=== PATIENT | female | born 1950 | race American Indian/Alaskan Native ===

== ENCOUNTER → 2018-02-17 09:13 | Outpatient (CLI) | payer MEDICARE, MEDICAID, SELFPAY ==
[2018-02-17 09:55] LABS: Hemoglobin A1C% w Est Avg Glu 8.1 % (4.0-6.0)
[2018-02-17 10:42] LABS: Alanine Aminotransferase 17 IU/L (9-52); Albumin 4.4 g/dL (3.5-5.0); Albumin Globulin Ratio 1.3 (1.0-2.8); Alkaline Phosphatase 82 U/L (38-126); Aspartate Aminotransferase 20 IU/L (14-36); BUN Creatinine Ratio 18.8 (6-22); Bilirubin Total 0.5 mg/dL (0.2-1.3); Blood Urea Nitrogen 15 mg/dL (7-17); Calcium 10.3 mg/dL (8.4-10.2); Carbon Dioxide 31 mmol/L (22-32); Chloride 99 mmol/L (98-107); Estimated Glomerular Filt Rate > 60.0 mL/min (>60); Globulin 3.5 g/dL (1.7-4.1); Glucose 166 mg/dL (80-110); HEMOLYSIS < 15 (0-50); Potassium 4.3 mmol/L (3.4-5.1); Sodium 140 mmol/L (137-145); Total Protein 7.9 g/dL (6.3-8.2)
[2018-02-17 11:00] LABS: Free T3, Triiodothyronine Free 2.07 pg/mL (2.77-5.27); Free T4, Direct Thyroxine 0.82 ng/dL (0.78-2.19)
== END ==
PROVIDERS: PCP Family Medicine; Visit Provider Family Medicine
DX: I10 Essential (primary) hypertension (principal); E03.9 Hypothyroidism, unspecified; E78.5 Hyperlipidemia, unspecified; E11.9 Type 2 diabetes mellitus without complications
CPT/HCPCS: 36415; 80053; 83036; 84439; 84443; 84481

== ENCOUNTER 2018-03-31 10:43 | Emergency (ER) | payer MEDICARE, MEDICAID, SELFPAY ==
[2018-03-31 10:45] VITALS: BP 112/79; PULSE 85; RESP 14; TEMP 36.8; O2SAT 96
--- NOTE | 2018-03-31 11:36 | PC.NURSE ---
Large Hematoma noted lower back. Tender to touch. Pt states it is not getting worse but is not getting better. On plavix for h/o stroke.
--- NOTE | 2018-03-31 12:22 | ED.BACK ---
HPI - Back Pain/Injury <CONRAD Villalba - Last Filed: 03/31/18 22:05> General Chief Complaint: Back Pain/Injury Stated Complaint: FELL, LUMP ON BACK, NOT RECOVERING Time Seen by Provider: 03/31/18 12:32 Source: patient Mode of arrival: wheelchair Limitations: no limitations History of Present Illness HPI Narrative: 67-year-old female with history of lumbar fusion/chronic back pain that is a everyday smoker here for complaint of pain into her lumbar area/tailbone area. She reports she had a ground level fall approximately 4 days ago when she landed on her lower back/buttocks area. She reports she has pain into her right lumbar area radiates into her tailbone area. She states that she is able to ambulate although it does cause her pain. She denies hitting her head. She denies any other injuries. Increased pain with palpation and movement of the lower back. No other concerns or complaints Related Data Home Medications Medication Instructions Recorded Confirmed buspirone 5 mg tablet 10 mg PO BID #0 tab 12/11/17 03/18/18 clopidogrel 75 mg tablet 75 mg PO DAILY 12/11/17 03/18/18 gabapentin 600 mg tablet 600 mg PO TID 12/11/17 03/18/18 levothyroxine 200 mcg tablet 200 mcg PO DAILY 12/11/17 03/18/18 ondansetron HCl 4 mg tablet 4 mg PO Q6H PRN 12/11/17 03/18/18 simvastatin 40 mg tablet 40 mg PO QAM 12/11/17 03/18/18 Zyprexa See Label Instructions PO BEDTIME 03/18/18 03/18/18 Previous Rx's Medication Instructions Recorded insulin detemir (U-100) 100 32 unit SUBCUT BEDTIME #15 ml 12/11/17 unit/mL (3 mL) subcutaneous pen levothyroxine 25 mcg capsule See Label Instructions PO .COMPLEX 12/11/17 #90 cap nutritional therapy glucose See Label Instructions .ROUTE 12/18/17 intolerance,lactose-free,soy oral .COMPLEX #5688 ml liquid metformin 1,000 mg tablet 1,000 mg PO BID #60 tab 02/03/18 sertraline 100 mg tablet 100 mg PO DAILY #90 tab 03/18/18 Accucheck test strips #100 each 03/26/18 Freestyle Glucose Meter #1 ea NS 03/28/18 Allergies Allergy/AdvReac Type Severity Reaction Status Date / Time Sulfa (Sulfonamide Allergy Severe RASH, Verified 03/18/18 08:53 Antibiotics) SWELLING, [SULFA (SULFONAMIDE ITCHING ANTIBIOTICS)] Penicillins [PENICILLINS] Allergy Intermediate RASH, Verified 03/18/18 08:53 SWELLING, ITCHING tramadol [TRAMADOL] Allergy Intermediate RASH Verified 03/18/18 08:53 hydromorphone [From DILAUDID] AdvReac Severe RASH, Verified 03/18/18 08:53 SWELLING, ITCHING ketorolac [From TORADOL] AdvReac Intermediate RASH Verified 03/18/18 08:53 Review of Systems <CONRAD Villalba - Last Filed: 03/31/18 22:05> Constitutional Denies chills, Denies fatigue, Denies fever(s), Denies lethargy and Denies weakness Eyes Denies change in vision, Denies eye discharge, Denies irritation and Denies loss of vision ENT Ears, Nose, Mouth, and Throat: Denies change in voice, Denies neck pain and Denies sore throat Cardiovascular Denies dyspnea and Denies dyspnea on exertion Respiratory Denies cough, Denies dyspnea, Denies dyspnea on exertion and Denies wheezing Gastrointestinal Gastrointestinal: Denies abdominal pain, Denies change in bowel habits, Denies diarrhea, Denies nausea and Denies vomiting Musculoskeletal Denies neck pain Comments: Lower back pain Integumentary/Breasts Denies pruritus, Denies erythema, Denies rash and Denies wounds Neurologic Denies loss of vision and Denies weakness Endocrine Denies fatigue and Denies flushing Allergic/Immunologic Denies wheezing Exam <CONRAD Villalba - Last Filed: 03/31/18 22:05> Initial Vital Signs Initial Vital Signs: Vital Signs Temperature 98.3 F 03/31/18 10:45 Pulse Rate 85 03/31/18 10:45 Respiratory Rate 14 03/31/18 10:45 Blood Pressure 112/79 03/31/18 10:45 Pulse Oximetry 96 03/31/18 10:45 Const General: cooperative and well developed Nutritional Appearance: well nourished Orientation: alert, awake, oriented x3 and not confused [facility] Head: normal to inspection, normocephalic and atraumatic Mouth: oral mucosae normal and moist mucous membranes Eyes Conjunctivae: conjunctivae normal Sclera: sclerae normal Pupils: PERRL EOM: EOM intact bilaterally Neck Neck: normal visual inspection, trachea midline, No lymphadenopathy, No midline deformity and No JVD Lymphatic: No lymphedema Resp Effort & Inspection: normal respiratory effort, able to speak in complete sentences, no respiratory distress and no use of accessory muscles Auscultation: clear to auscultation bilaterally, no rales, no rhonchi and no wheezes Cardio Rate: regular rate Rhythm: regular rhythm Heart Sounds: no click, no gallops, no murmurs and no rubs Pulses: normal peripheral pulses GI Inspection: non-distended Palpation: soft, no hepatosplenomegaly, No guarding, No pulsatile mass and No tender Auscultation: normal bowel sounds Back/Spine/Pelvis Thoracic/Lumbar Spine: paraspinal tenderness and lumbar spinal tenderness Sacrum: tenderness Coccyx: tenderness Other: Tenderness on palpation to the to midline and also paraspinal of lumbar spine with tenderness radiating into the sacral area. Superficial abrasion to the right lateral lumbar region with small hematoma felt under the skin no bruising seen. Distal sensation is intact. Distal range of motion is intact. Distal pulses are intact Skin General: no rashes or lesions noted, No jaundice and No petechiae Neuro General: alert, oriented x3, gait normal and no focal motor deficits Speech: speech normal Extrem Right lower extremity: normal to inspection, full ROM and normal capillary refill Left lower extremity: normal to inspection, full ROM and normal capillary refill <Swetha Resendiz DO - Last Filed: 04/01/18 09:48> Initial Vital Signs Initial Vital Signs: Vital Signs Temperature 98.3 F 03/31/18 10:45 Pulse Rate 85 03/31/18 10:45 Respiratory Rate 14 03/31/18 10:45 Blood Pressure 112/79 03/31/18 10:45 Pulse Oximetry 96 03/31/18 10:45 Course <CONRAD Villalba - Last Filed: 03/31/18 22:05> Orders Ordered: ED Orders 03/31/18 12:30 XR lumbar spine 2-3V Stat XR sacrum coccyx min 2V Stat Vital Signs - 8 hr 03/31/18 10:45 Temperature 98.3 F Pulse Rate 85 Respiratory Rate 14 Blood Pressure 112/79 Pulse Oximetry 96 <Swetha Resendiz DO - Last Filed: 04/01/18 09:48> Orders Ordered: ED Orders 03/31/18 12:30 XR lumbar spine 2-3V Stat XR sacrum coccyx min 2V Stat Vital Signs - 8 hr 03/31/18 10:45 Temperature 98.3 F Pulse Rate 85 Respiratory Rate 14 Blood Pressure 112/79 Pulse Oximetry 96 MDM - Back Pain/Injury <CONRAD Villalba - Last Filed: 03/31/18 22:05> Imaging Data Lumbar spine: Radiologist's impression: [address] [address] XRay Report Signed Patient: Vanda Lay MR#: [id number] : 1950 Acct:[id number] Age/Sex: 67 / F Date of Service: 03/31/18 Loc: ED Accession Number: [id number] Procedure: XR lumbar spine 2-3V Ordering Provider: Guido Negrete PROCEDURE: XR LUMBAR SPINE 2-3V INDICATIONS: Pain lumbar spine status post ground level fall TECHNIQUE: 3 views of the lumbar spine were acquired. COMPARISON: [facility], , L-SPINE 2-3 VIEWS, 01/26/2014, 15:32. FINDINGS: Bones: 5 [id number] vertebrae are present. There is normal bony alignment, partially maintained by presence of unilateral left-sided L2-L5 transverse pedicle screws and a single unilateral left-sided vertical fixation nick with interbody disc prosthesis present at L2 to 3, L3-4, and L4-L5. No vertebral body compression fractures. No suspicious bony lesions. Soft tissues: Overlying bowel gas pattern is normal. No suspicious soft tissue calcifications. IMPRESSION: Prior spine fusion as discussed, no evidence of device loosening or disruption aerated no trauma found, and no subluxation seen. Dictated by: Irving Ceballos M.D. on 03/31/2018 at 13:15 Approved by: Irving Ceballos M.D. on 03/31/2018 at 13:17 Sacrum coccyx : Radiologist's impression: [address] [address] XRay Report Signed Patient: Vanda Lay MR#: [id number] : 1950 Acct:[id number] Age/Sex: 67 / F Date of Service: 03/31/18 Loc: ED Accession Number: [id number] Procedure: XR sacrum coccyx min 2V Ordering Provider: Guido Negrete PROCEDURE: XR SACRUM COCCYX MIN 2V INDICATIONS: Pain to lower back and tailbone area status post ground leve TECHNIQUE: 3 views of the sacrum and coccyx acquired. COMPARISON: [facility], CR, XR LUMBAR SPINE 2-3V, 03/31/2018, 12:10. FINDINGS: Bones: No fractures or dislocations. No suspicious bony lesions. Prior spine fusion surgery only partially visualized crossing from L3-L5. Soft tissues: Visualized bowel gas pattern is normal. No suspicious soft tissue densities. IMPRESSION: No sacral fracture found. Prior unilateral left-sided spine fusion procedure from L2-L5. No evidence of device disruption or loosening. Dictated by: Irving Ceballos M.D. on 03/31/2018 at 13:14 Approved by: Irving Ceballos M.D. on 03/31/2018 at 13:15 [facility] Narrative Medical decision making narrative: X-ray the lumbar spine and sacrum coccyx were obtained and was negative for any acute findings. Hardware appears to be intact. Signs and symptoms presents as contusion/hematoma to the lumbar region. [id number]-[id number] Tylenol as needed for any discomfort. Follow up with primary care provider. Return emergency room for any worsening symptoms. Discharge Plan Departure Patient Disposition: Home Clinical Impression: Lower back pain Discharge Date/Time: 03/31/18 13:50 Interventions: ED Discharge Assessment Last Done: 03/31/18 13:50 Instructions: DI for Low Back Pain Activity Restrictions/Additional Instructions: X-rays of the lumbar spine and also sacrum coccyx were negative for any acute findings. Hardware is intact. Signs and symptoms presents as contusion/hematoma to the area. Use [id number] Tylenol as needed for any discomfort. Follow up with her primary care provider. Return emergency room for any worsening symptoms. Prescriptions: No Action insulin detemir U-100 [Levemir FlexTouch U-100 Insuln] 100 unit/mL (3 mL) insulin pen 32 unit SUBCUT BEDTIME Qty: 15 RF: 2 Zyprexa See Patient Comments PO BEDTIME RF: 0 gabapentin 600 mg tablet 600 mg PO TID RF: 0 ondansetron HCl 4 mg tablet 4 mg PO Q6H PRNRF: 0 clopidogrel 75 mg tablet 75 mg PO DAILY RF: 0 simvastatin 40 mg tablet 40 mg PO QAM RF: 0 levothyroxine 200 mcg tablet 200 mcg PO DAILY RF: 0 buspirone 5 mg tablet 10 mg PO BID Qty: 0 RF: 0 levothyroxine 25 mcg capsule See Label Instructions PO .COMPLEX Qty: 90 RF: 0 nut.tx.gluc.intol,lac-free,soy [Glucerna Shake] liquid See Label Instructions .ROUTE .COMPLEX Qty: 5688 RF: 6 metformin 1,000 mg tablet 1,000 mg PO BID Qty: 60 RF: 3 sertraline 100 mg tablet 100 mg PO DAILY Qty: 90 RF: 1 Accucheck test strips Qty: 100 RF: 3 Freestyle Glucose Meter Qty: 1 RF: 0 Referrals: Savannah Souza DO [Primary Care Provider] - <Swetha Resendiz DO - Last Filed: 04/01/18 09:48> Cosign ED Attending Coskaiaature Attestation: I was immediately available in the department for consultation. Documentation has been reviewed. I agree with assessment and plan.
--- NOTE | 2018-03-31 12:30 | DI.RAD.S_ITS ---
PROCEDURE: XR SACRUM COCCYX MIN 2V INDICATIONS: Pain to lower back and tailbone area status post ground leve TECHNIQUE: 3 views of the sacrum and coccyx acquired. COMPARISON: [facility], , XR LUMBAR SPINE 2-3V, 03/31/2018, 12:10. FINDINGS: Bones: No fractures or dislocations. No suspicious bony lesions. Prior spine fusion surgery only partially visualized crossing from L3-L5. Soft tissues: Visualized bowel gas pattern is normal. No suspicious soft tissue densities. IMPRESSION: No sacral fracture found. Prior unilateral left-sided spine fusion procedure from L2-L5. No evidence of device disruption or loosening. Dictated by: Irving Ceballos M.D. on 03/31/2018 at 13:14 Approved by: Irving Ceballos M.D. on 03/31/2018 at 13:15
--- NOTE | 2018-03-31 12:30 | DI.RAD.S_ITS ---
PROCEDURE: XR LUMBAR SPINE 2-3V INDICATIONS: Pain lumbar spine status post ground level fall TECHNIQUE: 3 views of the lumbar spine were acquired. COMPARISON: [facility], , L-SPINE 2-3 VIEWS, 01/26/2014, 15:32. FINDINGS: Bones: 5 [id number] vertebrae are present. There is normal bony alignment, partially maintained by presence of unilateral left-sided L2-L5 transverse pedicle screws and a single unilateral left-sided vertical fixation nick with interbody disc prosthesis present at L2 to 3, L3-4, and L4-L5. No vertebral body compression fractures. No suspicious bony lesions. Soft tissues: Overlying bowel gas pattern is normal. No suspicious soft tissue calcifications. IMPRESSION: Prior spine fusion as discussed, no evidence of device loosening or disruption aerated no trauma found, and no subluxation seen. Dictated by: Irving Ceballos M.D. on 03/31/2018 at 13:15 Approved by: Irving Ceballos M.D. on 03/31/2018 at 13:17
--- NOTE | 2018-03-31 13:37 | ED_ITS ---
HPI - Back Pain/Injury <CONRAD Villalba - Last Filed: 03/31/18 22:05> General Chief Complaint: Back Pain/Injury Stated Complaint: FELL, LUMP ON BACK, NOT RECOVERING Time Seen by Provider: 03/31/18 12:32 Source: patient Mode of arrival: wheelchair Limitations: no limitations History of Present Illness HPI Narrative: 67-year-old female with history of lumbar fusion/chronic back pain that is a everyday smoker here for complaint of pain into her lumbar area/ tailbone area. She reports she had a ground level fall approximately 4 days ago when she landed on her lower back/buttocks area. She reports she has pain into her right lumbar area radiates into her tailbone area. She states that she is able to ambulate although it does cause her pain. She denies hitting her head. She denies any other injuries. Increased pain with palpation and movement of the lower back. No other concerns or complaints Related Data Home Medications Medication Instructions Recorded Confirmed buspirone 5 mg tablet 10 mg PO BID #0 tab 12/11/17 03/18/18 clopidogrel 75 mg tablet 75 mg PO DAILY 12/11/17 03/18/18 gabapentin 600 mg tablet 600 mg PO TID 12/11/17 03/18/18 levothyroxine 200 mcg tablet 200 mcg PO DAILY 12/11/17 03/18/18 ondansetron HCl 4 mg tablet 4 mg PO Q6H PRN 12/11/17 03/18/18 simvastatin 40 mg tablet 40 mg PO QAM 12/11/17 03/18/18 Zyprexa See Label Instructions PO BEDTIME 03/18/18 03/18/18 Previous Rx's Medication Instructions Recorded insulin detemir (U-100) 100 32 unit SUBCUT BEDTIME #15 ml 12/11/17 unit/mL (3 mL) subcutaneous pen levothyroxine 25 mcg capsule See Label Instructions PO .COMPLEX 12/11/17 #90 cap nutritional therapy glucose See Label Instructions .ROUTE 12/18/17 intolerance,lactose-free,soy oral .COMPLEX #5688 ml liquid metformin 1,000 mg tablet 1,000 mg PO BID #60 tab 02/03/18 sertraline 100 mg tablet 100 mg PO DAILY #90 tab 03/18/18 Accucheck test strips #100 each 03/26/18 Freestyle Glucose Meter #1 ea NS 03/28/18 Allergies Allergy/AdvReac Type Severity Reaction Status Date / Time Sulfa (Sulfonamide Allergy Severe RASH, Verified 03/18/18 08:53 Antibiotics) SWELLING, [SULFA (SULFONAMIDE ITCHING ANTIBIOTICS)] Penicillins [PENICILLINS] Allergy Intermediate RASH, Verified 03/18/18 08:53 SWELLING, ITCHING tramadol [TRAMADOL] Allergy Intermediate RASH Verified 03/18/18 08:53 hydromorphone [From DILAUDID] AdvReac Severe RASH, Verified 03/18/18 08:53 SWELLING, ITCHING ketorolac [From TORADOL] AdvReac Intermediate RASH Verified 03/18/18 08:53 Review of Systems <CONRAD Villalba - Last Filed: 03/31/18 22:05> Constitutional Denies chills, Denies fatigue, Denies fever(s), Denies lethargy and Denies weakness Eyes Denies change in vision, Denies eye discharge, Denies irritation and Denies loss of vision ENT Ears, Nose, Mouth, and Throat: Denies change in voice, Denies neck pain and Denies sore throat Cardiovascular Denies dyspnea and Denies dyspnea on exertion Respiratory Denies cough, Denies dyspnea, Denies dyspnea on exertion and Denies wheezing Gastrointestinal Gastrointestinal: Denies abdominal pain, Denies change in bowel habits, Denies diarrhea, Denies nausea and Denies vomiting Musculoskeletal Denies neck pain Comments: Lower back pain Integumentary/Breasts Denies pruritus, Denies erythema, Denies rash and Denies wounds Neurologic Denies loss of vision and Denies weakness Endocrine Denies fatigue and Denies flushing Allergic/Immunologic Denies wheezing Exam <CONRAD Villalba - Last Filed: 03/31/18 22:05> Initial Vital Signs Initial Vital Signs: Vital Signs Temperature 98.3 F 03/31/18 10:45 Pulse Rate 85 03/31/18 10:45 Respiratory Rate 14 03/31/18 10:45 Blood Pressure 112/79 03/31/18 10:45 Pulse Oximetry 96 03/31/18 10:45 Const General: cooperative and well developed Nutritional Appearance: well nourished Orientation: alert, awake, oriented x3 and not confused [facility] Head: normal to inspection, normocephalic and atraumatic Mouth: oral mucosae normal and moist mucous membranes Eyes Conjunctivae: conjunctivae normal Sclera: sclerae normal Pupils: PERRL EOM: EOM intact bilaterally Neck Neck: normal visual inspection, trachea midline, No lymphadenopathy, No midline deformity and No JVD Lymphatic: No lymphedema Resp Effort & Inspection: normal respiratory effort, able to speak in complete sentences, no respiratory distress and no use of accessory muscles Auscultation: clear to auscultation bilaterally, no rales, no rhonchi and no wheezes Cardio Rate: regular rate Rhythm: regular rhythm Heart Sounds: no click, no gallops, no murmurs and no rubs Pulses: normal peripheral pulses GI Inspection: non-distended Palpation: soft, no hepatosplenomegaly, No guarding, No pulsatile mass and No tender Auscultation: normal bowel sounds Back/Spine/Pelvis Thoracic/Lumbar Spine: paraspinal tenderness and lumbar spinal tenderness Sacrum: tenderness Coccyx: tenderness Other: Tenderness on palpation to the to midline and also paraspinal of lumbar spine with tenderness radiating into the sacral area. Superficial abrasion to the right lateral lumbar region with small hematoma felt under the skin no bruising seen. Distal sensation is intact. Distal range of motion is intact. Distal pulses are intact Skin General: no rashes or lesions noted, No jaundice and No petechiae Neuro General: alert, oriented x3, gait normal and no focal motor deficits Speech: speech normal Extrem Right lower extremity: normal to inspection, full ROM and normal capillary refill Left lower extremity: normal to inspection, full ROM and normal capillary refill <Swetha Resendiz DO - Last Filed: 04/01/18 09:48> Initial Vital Signs Initial Vital Signs: Vital Signs Temperature 98.3 F 03/31/18 10:45 Pulse Rate 85 03/31/18 10:45 Respiratory Rate 14 03/31/18 10:45 Blood Pressure 112/79 03/31/18 10:45 Pulse Oximetry 96 03/31/18 10:45 Course <CONRAD Villalba - Last Filed: 03/31/18 22:05> Orders Ordered: ED Orders 03/31/18 12:30 XR lumbar spine 2-3V Stat XR sacrum coccyx min 2V Stat Vital Signs - 8 hr 03/31/18 10:45 Temperature 98.3 F Pulse Rate 85 Respiratory Rate 14 Blood Pressure 112/79 Pulse Oximetry 96 <Swetha Resendiz DO - Last Filed: 04/01/18 09:48> Orders Ordered: ED Orders 03/31/18 12:30 XR lumbar spine 2-3V Stat XR sacrum coccyx min 2V Stat Vital Signs - 8 hr 03/31/18 10:45 Temperature 98.3 F Pulse Rate 85 Respiratory Rate 14 Blood Pressure 112/79 Pulse Oximetry 96 MDM - Back Pain/Injury <CONRAD Vilallba - Last Filed: 03/31/18 22:05> Imaging Data Lumbar spine: Radiologist's impression: [address] [address] XRay Report Signed Patient: Vanda Lay MR#: [id number] : 1950 Acct:[id number] Age/Sex: 67 / F Date of Service: 03/31/18 Loc: ED Accession Number: [id number] Procedure: XR lumbar spine 2-3V Ordering Provider: Guido Negrete PROCEDURE: XR LUMBAR SPINE 2-3V INDICATIONS: Pain lumbar spine status post ground level fall TECHNIQUE: 3 views of the lumbar spine were acquired. COMPARISON: [facility], , L-SPINE 2-3 VIEWS, 01/26/2014, 15:32. FINDINGS: Bones: 5 [id number] vertebrae are present. There is normal bony alignment , partially maintained by presence of unilateral left-sided L2-L5 transverse pedicle screws and a single unilateral left-sided vertical fixation nick with interbody disc prosthesis present at L2 to 3, L3-4, and L4-L5. No vertebral body compression fractures. No suspicious bony lesions. Soft tissues: Overlying bowel gas pattern is normal. No suspicious soft tissue calcifications. IMPRESSION: Prior spine fusion as discussed, no evidence of device loosening or disruption aerated no trauma found, and no subluxation seen. Dictated by: Irving Ceballos M.D. on 03/31/2018 at 13:15 Approved by: Irving Ceballos M.D. on 03/31/2018 at 13:17 Sacrum coccyx : Radiologist's impression: [address] [address] XRay Report Signed Patient: Vanda Lay MR#: [id number] : 1950 Acct:[id number] Age/Sex: 67 / F Date of Service: 03/31/18 Loc: ED Accession Number: [id number] Procedure: XR sacrum coccyx min 2V Ordering Provider: Guido Negrete PROCEDURE: XR SACRUM COCCYX MIN 2V INDICATIONS: Pain to lower back and tailbone area status post ground leve TECHNIQUE: 3 views of the sacrum and coccyx acquired. COMPARISON: [facility], CR, XR LUMBAR SPINE 2-3V, 03/31/2018, 12:10. FINDINGS: Bones: No fractures or dislocations. No suspicious bony lesions. Prior spine fusion surgery only partially visualized crossing from L3-L5. Soft tissues: Visualized bowel gas pattern is normal. No suspicious soft tissue densities. IMPRESSION: No sacral fracture found. Prior unilateral left-sided spine fusion procedure from L2-L5. No evidence of device disruption or loosening. Dictated by: Irving Ceballos M.D. on 03/31/2018 at 13:14 Approved by: Irving Ceballos M.D. on 03/31/2018 at 13:15 [facility] Narrative Medical decision making narrative: X-ray the lumbar spine and sacrum coccyx were obtained and was negative for any acute findings. Hardware appears to be intact. Signs and symptoms presents as contusion/hematoma to the lumbar region. [id number] Tylenol as needed for any discomfort. Follow up with primary care provider. Return emergency room for any worsening symptoms. Discharge Plan Departure Patient Disposition: Home Clinical Impression: Lower back pain Discharge Date/Time: 03/31/18 13:50 Interventions: ED Discharge Assessment Last Done: 03/31/18 13:50 Instructions: DI for Low Back Pain Activity Restrictions/Additional Instructions: X-rays of the lumbar spine and also sacrum coccyx were negative for any acute findings. Hardware is intact. Signs and symptoms presents as contusion/ hematoma to the area. Use [id number] Tylenol as needed for any discomfort. Follow up with her primary care provider. Return emergency room for any worsening symptoms. Prescriptions: No Action insulin detemir U-100 [Levemir FlexTouch U-100 Insuln] 100 unit/mL (3 mL) insulin pen 32 unit SUBCUT BEDTIME Qty: 15 RF: 2 Zyprexa See Patient Comments PO BEDTIME RF: 0 gabapentin 600 mg tablet 600 mg PO TID RF: 0 ondansetron HCl 4 mg tablet 4 mg PO Q6H PRNRF: 0 clopidogrel 75 mg tablet 75 mg PO DAILY RF: 0 simvastatin 40 mg tablet 40 mg PO QAM RF: 0 levothyroxine 200 mcg tablet 200 mcg PO DAILY RF: 0 buspirone 5 mg tablet 10 mg PO BID Qty: 0 RF: 0 levothyroxine 25 mcg capsule See Label Instructions PO .COMPLEX Qty: 90 RF: 0 nut.tx.gluc.intol,lac-free,soy [Glucerna Shake] liquid See Label Instructions .ROUTE .COMPLEX Qty: 5688 RF: 6 metformin 1,000 mg tablet 1,000 mg PO BID Qty: 60 RF: 3 sertraline 100 mg tablet 100 mg PO DAILY Qty: 90 RF: 1 Accucheck test strips Qty: 100 RF: 3 Freestyle Glucose Meter Qty: 1 RF: 0 Referrals: Savannah Souza DO [Primary Care Provider] - <Swetha Resendiz DO - Last Filed: 04/01/18 09:48> Cosign ED Attending Coskaiaature Attestation: I was immediately available in the department for consultation. Documentation has been reviewed. I agree with assessment and plan.
[2018-03-31 13:50] VITALS: BP 109/64; PULSE 69; RESP 18; O2SAT 91
== END 2018-03-31 13:50 | disposition home or self-care (01) ==
PROVIDERS: Emergency Provider Nurse Practitioner Family; PCP Family Medicine
DX: M54.5 Low back pain (principal); W18.30XA Fall on same level, unspecified, initial encounter
CPT/HCPCS: 72100; 72220; 81003; 99283

== ENCOUNTER → 2018-04-22 10:30 | Outpatient (CLI) | payer MEDICARE, MEDICAID, SELFPAY ==
[2018-04-22 11:12] LABS: Add Manual Diff / Slide Review NO; Basophils Percent Auto 0.5 % (0-2); Eosinophils Percent Auto 1.9 % (2-4); Hematocrit 49.7 % (36-46); Hemoglobin 17.2 g/dL (12.0-16.0); Lymphocytes Percent Auto 34.6 % (25-40); Mean Corpuscular HGB Conc 34.5 % (30-36); Mean Corpuscular Hemoglobin 32.4 PG (26-34); Mean Corpuscular Volume 93.9 fL (80-100); Monocytes Percent Auto 5.3 % (3-14); Neutrophils Absolute Auto 5600 /uL (3000-5900); Neutrophils Percent Auto 57.7 % (50-75); Platelet Count 248 X10^3/uL (150-400); Red Blood Cell Count 5.29 X10^6/uL (4.0-5.2); Red Cell Distribution Width 13.7 % (11.6-14.8); White Blood Cell Count 9.7 X10^3/uL (4.5-11.0)
[2018-04-22 11:14] LABS: Hemoglobin A1C% w Est Avg Glu 7.3 % (4.0-6.0)
[2018-04-22 11:19] LABS: Alanine Aminotransferase 28 IU/L (9-52); Albumin 4.6 g/dL (3.5-5.0); Albumin Globulin Ratio 1.4 (1.0-2.8); Alkaline Phosphatase 68 U/L (38-126); Aspartate Aminotransferase 37 IU/L (14-36); Bilirubin Total 0.7 mg/dL (0.2-1.3); Blood Urea Nitrogen 12 mg/dL (7-17); Calcium 9.8 mg/dL (8.4-10.2); Carbon Dioxide 27 mmol/L (22-32); Chloride 103 mmol/L (98-107); Cholesterol 203 mg/dL (140-199); Estimated Glomerular Filt Rate > 60.0 mL/min (>60); Globulin 3.3 g/dL (1.7-4.1); Glucose 122 mg/dL (80-110); HDL Cholesterol 34 mg/dL (40-60); HEMOLYSIS 34 (0-50); LDL Cholesterol Calculated 136 mg/dL (<100); Potassium 4.5 mmol/L (3.4-5.1); Sodium 143 mmol/L (137-145); Total Protein 7.9 g/dL (6.3-8.2); Triglycerides 167 mg/dL (35-150)
[2018-04-22 11:36] LABS: Free T3, Triiodothyronine Free 2.69 pg/mL (2.77-5.27); Free T4, Direct Thyroxine 1.33 ng/dL (0.78-2.19)
[2018-04-22 11:50] LABS: Thyroid Stimulating Hormone 4.12 uIU/mL (0.47-4.68)
== END ==
PROVIDERS: PCP Family Medicine; Visit Provider Family Medicine
DX: E03.9 Hypothyroidism, unspecified (principal); E11.9 Type 2 diabetes mellitus without complications; E78.5 Hyperlipidemia, unspecified; I10 Essential (primary) hypertension; J44.9 Chronic obstructive pulmonary disease, unspecified
CPT/HCPCS: 36415; 80053; 80061; 83036; 84439; 84443; 84481; 85025

== ENCOUNTER → 2018-06-10 09:56 | Outpatient (CLI) | payer MEDICARE, MEDICAID, SELFPAY ==
--- NOTE | 2018-06-10 09:58 | DI.US.S_ITS ---
PROCEDURE: US THYROID INDICATIONS: POSSIBLE ENLARGE MULTINODULAR THYROID TECHNIQUE: Real-time scanning was performed of the thyroid gland, with image documentation. COMPARISON: None. FINDINGS: Right: Thyroid lobe measures 2.4 x 1.2 x 0.9 cm, and is heterogeneous in echotexture. Left: Thyroid lobe measures 2.5 x 1.6 x 1.0 cm, and is heterogeneous in echotexture. Isthmus: 1.3 mm thick. IMPRESSION: 1. Atrophic thyroid gland with heterogeneous echotexture. Please correlate with function tests. 2. No thyroid nodules. Dictated by: Maral Amanda M.D. on 06/10/2018 at 14:49 Approved by: Maral Amanda M.D. on 06/10/2018 at 14:52
== END ==
PROVIDERS: PCP Family Medicine; Visit Provider Family Medicine
DX: E04.9 Nontoxic goiter, unspecified (principal)
CPT/HCPCS: 76536

== ENCOUNTER → 2018-07-01 08:53 | Outpatient (CLI) | payer MEDICARE, MEDICAID, SELFPAY ==
[2018-07-01 09:26] LABS: Add Manual Diff / Slide Review NO; Eosinophils Percent Auto 1.5 % (2-4); Hematocrit 46.8 % (36-46); Hemoglobin 15.8 g/dL (12.0-16.0); Mean Corpuscular HGB Conc 33.9 % (30-36); Mean Corpuscular Hemoglobin 31.4 PG (26-34); Mean Corpuscular Volume 92.6 fL (80-100); Monocytes Percent Auto 4.4 % (3-14); Neutrophils Absolute Auto 6900 /uL (3000-5900); Neutrophils Percent Auto 70.1 % (50-75); Platelet Count 228 X10^3/uL (150-400); Red Blood Cell Count 5.05 X10^6/uL (4.0-5.2); Red Cell Distribution Width 13.7 % (11.6-14.8); White Blood Cell Count 9.8 X10^3/uL (4.5-11.0)
[2018-07-01 09:33] LABS: Hemoglobin A1C% w Est Avg Glu 7.1 % (4.0-6.0)
[2018-07-01 09:46] LABS: Alanine Aminotransferase 20 IU/L (9-52); Albumin 3.9 g/dL (3.5-5.0); Albumin Globulin Ratio 1.3 (1.0-2.8); Alkaline Phosphatase 73 U/L (38-126); Aspartate Aminotransferase 21 IU/L (14-36); BUN Creatinine Ratio 18.3 (6-22); Bilirubin Total 0.4 mg/dL (0.2-1.3); Blood Urea Nitrogen 11 mg/dL (7-17); Calcium 9.1 mg/dL (8.4-10.2); Carbon Dioxide 33 mmol/L (22-32); Chloride 99 mmol/L (98-107); Estimated Glomerular Filt Rate > 60.0 mL/min (>60); Glucose 134 mg/dL (80-110); HEMOLYSIS < 15 (0-50); Potassium 4.6 mmol/L (3.4-5.1); Sodium 141 mmol/L (137-145); Total Protein 6.9 g/dL (6.3-8.2)
[2018-07-01 10:16] LABS: Thyroid Stimulating Hormone 3.54 uIU/mL (0.47-4.68)
== END ==
PROVIDERS: PCP Family Medicine; Visit Provider Family Medicine
DX: E03.9 Hypothyroidism, unspecified (principal); E11.9 Type 2 diabetes mellitus without complications; E78.5 Hyperlipidemia, unspecified; I10 Essential (primary) hypertension
CPT/HCPCS: 36415; 80053; 83036; 84443; 85025

== ENCOUNTER → 2018-09-03 10:35 | Outpatient (CLI) | payer MEDICARE, MEDICAID, SELFPAY ==
[2018-09-03 11:31] LABS: Hemoglobin A1C% w Est Avg Glu 7.7 % (4.0-6.0)
[2018-09-03 11:41] LABS: Alanine Aminotransferase 30 IU/L (9-52); Albumin 4.4 g/dL (3.5-5.0); Albumin Globulin Ratio 1.4 (1.0-2.8); Alkaline Phosphatase 74 U/L (38-126); Aspartate Aminotransferase 28 IU/L (14-36); BUN Creatinine Ratio 26.7 (6-22); Bilirubin Total 0.4 mg/dL (0.2-1.3); Blood Urea Nitrogen 16 mg/dL (7-17); Calcium 9.3 mg/dL (8.4-10.2); Carbon Dioxide 30 mmol/L (22-32); Chloride 96 mmol/L (98-107); Cholesterol 120 mg/dL (140-199); Estimated Glomerular Filt Rate > 60.0 mL/min (>60); Globulin 3.1 g/dL (1.7-4.1); Glucose 121 mg/dL (80-110); HDL Cholesterol 34 mg/dL (40-60); HEMOLYSIS < 15 (0-50); LDL Cholesterol Calculated 64 mg/dL (<100); Potassium 3.7 mmol/L (3.4-5.1); Sodium 136 mmol/L (137-145); Total Protein 7.5 g/dL (6.3-8.2); Triglycerides 111 mg/dL (35-150)
[2018-09-03 12:18] LABS: Thyroid Stimulating Hormone 0.79 uIU/mL (0.47-4.68)
== END ==
PROVIDERS: PCP Family Medicine; Visit Provider Family Medicine
DX: E03.9 Hypothyroidism, unspecified (principal); E11.9 Type 2 diabetes mellitus without complications; E78.5 Hyperlipidemia, unspecified; I10 Essential (primary) hypertension
CPT/HCPCS: 36415; 80053; 80061; 83036; 84443

== ENCOUNTER → 2018-09-30 10:28 | Outpatient (CLI) | payer MEDICARE, MEDICAID, SELFPAY ==
--- NOTE | 2018-09-30 10:30 | DI.CT.S_ITS ---
PROCEDURE: CT ABDOMEN WO CON INDICATIONS: evaluate for ventral hernia which is suspected TECHNIQUE: After the administration of oral contrast, 5 mm thick sections acquired from the diaphragms to the iliac crests. 5 mm coronal and sagittal reformats were then performed. For radiation dose reduction, the following was used: automated exposure control, adjustment of mA and/or kV according to patient size. COMPARISON: None. FINDINGS: Image quality: Excellent. Lung bases: Bibasilar dependent atelectasis is seen. Heart size is normal. Solid organs: Liver is normal in size. Gallbladder is within normal limits. Pancreas is normal in contours. Spleen is normal in size. No adrenal nodules. Both kidneys are normal in size, without hydronephrosis or nephrolithiasis. Peritoneum and bowel: Bowel loops demonstrate normal wall thickness and caliber. No free fluid or air. Post surgical changes are noted in right lower quadrant abdomen suggest clinical correlation. Colonic diverticulosis is seen, no CT evidence of acute diverticulitis. Nodes and vessels: No retroperitoneal or mesenteric adenopathy by size criteria. Aorta and inferior vena cava are normal in size. Bones: No suspicious bony lesions. No vertebral body compression fractures. Patient is status post left transpedicular fusion of mid to lower lumbar spine. Miscellaneous: Small periumbilical hernia is seen containing fat only. No other ventral hernia is noted. IMPRESSION: 1. Small periumbilical hernia containing fat only. 2. No evidence of bowel obstruction. Postsurgical changes in right lower quadrant abdomen. No abnormal bowel wall thickening. No free fluid or free air. Colonic diverticulosis with no CT evidence of acute diverticulitis. 3. Post fusion changes in mid to lower lumbar spine. Dictated by: Timothy Alanis M.D. on 09/30/2018 at 11:58 Approved by: Timothy Alanis M.D. on 09/30/2018 at 12:03
== END ==
PROVIDERS: PCP Family Medicine; Visit Provider Specialist
DX: K42.9 Umbilical hernia without obstruction or gangrene (principal); K57.90 Diverticulosis of intestine, part unspecified, without perforation or abscess without bleeding; Z98.1 Arthrodesis status
CPT/HCPCS: 74150

== ENCOUNTER → 2018-12-17 09:40 | Outpatient (CLI) | payer MEDICARE, MEDICAID, SELFPAY ==
[2018-12-17 10:32] LABS: Add Manual Diff / Slide Review NO; Basophils Absolute Auto 0 /uL (0-100); Basophils Percent Auto 0.3 % (0-2); Eosinophils Absolute Auto 100 /uL (0-450); Eosinophils Percent Auto 1.1 % (2-4); Hematocrit 49.7 % (36-46); Hemoglobin 16.8 g/dL (12.0-16.0); Hemoglobin A1C% w Est Avg Glu 6.9 % (4.0-6.0); Lymphocytes Absolute Auto 2900 /uL (1100-4500); Mean Corpuscular HGB Conc 33.9 % (30-36); Mean Corpuscular Hemoglobin 31.1 PG (26-34); Mean Corpuscular Volume 91.9 fL (80-100); Monocytes Absolute Auto 500 /uL (0-900); Neutrophils Absolute Auto 6400 /uL (1500-7000); Neutrophils Percent Auto 64.6 % (50-75); Platelet Count 185 X10^3/uL (150-400); Red Blood Cell Count 5.41 X10^6/uL (4.0-5.2)
[2018-12-17 10:35] LABS: BUN Creatinine Ratio 23.3 (6-22); Blood Urea Nitrogen 14 mg/dL (7-17); Estimated Glomerular Filt Rate > 60.0 mL/min (>60)
[2018-12-17 10:37] LABS: Alanine Aminotransferase 19 IU/L (9-52); Albumin 4.3 g/dL (3.5-5.0); Albumin Globulin Ratio 1.3 (1.0-2.8); Alkaline Phosphatase 77 U/L (38-126); Aspartate Aminotransferase 18 IU/L (14-36); BUN Creatinine Ratio 23.3 (6-22); Bilirubin Total 0.5 mg/dL (0.2-1.3); Blood Urea Nitrogen 14 mg/dL (7-17); Carbon Dioxide 26 mmol/L (22-32); Chloride 102 mmol/L (98-107); Cholesterol 140 mg/dL (140-199); Estimated Glomerular Filt Rate > 60.0 mL/min (>60); Globulin 3.2 g/dL (1.7-4.1); Glucose 138 mg/dL (80-110); HDL Cholesterol 35 mg/dL (40-60); HEMOLYSIS < 15 (0-50); LDL Cholesterol Calculated 85 mg/dL (<100); Potassium 4.2 mmol/L (3.4-5.1); Sodium 138 mmol/L (137-145); Total Protein 7.5 g/dL (6.3-8.2); Triglycerides 100 mg/dL (35-150)
== END ==
PROVIDERS: Surgery; PCP Family Medicine; Visit Provider Family Medicine
DX: E11.9 Type 2 diabetes mellitus without complications (principal); E78.5 Hyperlipidemia, unspecified; I10 Essential (primary) hypertension; K43.2 Incisional hernia without obstruction or gangrene
CPT/HCPCS: 36415; 80053; 80061; 82565; 83036; 84520; 85025

== ENCOUNTER 2018-12-19 09:42 | Day surgery (SDC) | payer MEDICARE, MEDICAID, SELFPAY ==
[2018-12-19] VITALS (8 sets, daily range): BP systolic 95–154; BP diastolic 62–97; PULSE 89–122; RESP 15–18; TEMP 36.2–36.8; O2SAT 92–94; BMI 28.1
--- NOTE | 2018-12-19 | PATH_ITS ---
[facility] Accession Number: [id number] . 01 Material submitted: . PART A: colon - COLON POLYP BIOPSY AT 85CM COLON X3 PART B: colon - COLON POLYP BIOPSY AT 55CM X2 PART C: colon - COLON POLYP BIOPSY AT 20CM . 02 Diagnosis: A. Biopsy, Colon Polyp at 85 cm: Tubular adenoma involving multiple biopsy fragments. . B. Biopsy, Colon Polyp at 55 cm: Tubular adenoma involving single biopsy fragment. Two polypoid-shaped fragments of colon mucosa associated with prominent mucosal lymphoid aggregate (negative for dysplasia and malignancy). . C. Biopsy, Colon Polyp at 20 cm: Hyperplastic polyp. [facility]/12/22/2018 . 02 Electronically signed: . Malik Schwartz MD, Pathologist NPI- [id number] . 01 Gross description: . Part A: COLON POLYP BIOPSY AT 85CM COLON X3: Received in formalin are multiple fragment(s) of flynn, soft tissue measuring 0.2 x 0.2 x 0.1 cm to 0.8 x 0.6 x 0.5 cm which is entirely submitted and submitted entirely in 1 cassette(s) Part B: COLON POLYP BIOPSY AT 55CM X2: Received in formalin are 4 fragment(s) of flynn, soft tissue measuring 0.1 x 0.1 x 0.1 cm to 0.3 x 0.2 x 0.2 cm which is entirely submitted and submitted entirely in 1 cassette(s) Part C: COLON POLYP BIOPSY AT 20CM: Received in formalin is 1 fragment(s) of flynn, soft tissue measuring 0.2 x 0.2 x 0.2 cm which is entirely submitted and submitted entirely in 1 cassette(s) /DMC /DMC . 02 Pathologist provided ICD-10: D12.2 . 02 CPT . 976179, [id number], [id number] Performed at: 01 [facility] [address] [place] [address], [place], [place] [id number] MD Elliott Castanon MD Phone: [phone] Performed at: 02 [facility] [address] [place], [place] [id number] MD Oriana Dietz MD Phone: [phone]
[2018-12-19] MEDS: SODIUM CHLORIDE 0.9% 1,000 ML 200 ML IV (10:05)
--- NOTE | 2018-12-19 10:46 | PM.HP.1 ---
History of Present Illness Date Patient Seen: 12/19/18 Time Patient Seen: 10:47 Chief complaint: [id number] SCREENING COLONOSCOPY Narrative: Patient here for screening colonoscopy. Patient History Medical History Anxiety (Chronic 1969) COPD (chronic obstructive pulmonary disease) (Chronic 2012) Cataracts, bilateral (Chronic Unknown) Chronic back pain (Chronic 2001) Depression (Chronic 1992) Diverticular disease (Chronic 2004) Foot pain (Chronic 2016) Hypothyroidism (Chronic 2001) Chickenpox (Resolved 1954) Measles (Resolved 1959) Mumps (Resolved 1959) Surgical History History of back surgery (Resolved) Hx of hernia repair (Resolved 10/2016) Family History Brother Age: 61 Diabetes mellitus Father No problems noted. Mother No problems noted. Social History household members: none Smoking Status: Current every day smoker (1 pack a day. Patient has already received a smoking cessation handout.) Tobacco: How many years used: 55 quit status: considering quitting (I am waiting for Dr. Souza to find out if my insurance will cover the patches.) second hand exposure: Yes (my friend Sagar next door smokes.) alcohol intake: former (I did way back when. I stopped when I was 17 years old.) substance use type: marijuana Family & Social History Family History Brother Age: 61 Diabetes mellitus Father No problems noted. Mother No problems noted. Social History: household members none Tobacco & Substance use: Smoking Status Current every day smoker alcohol intake former Meds Home Medications Medication Instructions Recorded Confirmed Type nutritional therapy glucose See Rx Instructions .ROUTE 12/18/17 12/19/18 Rx intolerance,lactose-free,soy oral .COMPLEX #5688 ml liquid Accucheck test strips #100 each 03/26/18 12/17/18 Rx nicotine 21 mg/24 hr daily 1 patch TRANSDERMAL DAILY #28 each 07/23/18 12/19/18 Rx transdermal patch insulin detemir (U-100) 100 32 unit SUBCUT BEDTIME #15 ml 08/13/18 12/19/18 Rx unit/mL (3 mL) subcutaneous pen levothyroxine 200 mcg tablet 200 mcg PO DAILY #90 tab 08/18/18 12/19/18 Rx docusate sodium 250 mg capsule 250 mg PO DAILY PRN #90 cap 08/19/18 12/19/18 Rx sertraline 100 mg tablet 100 mg PO DAILY #90 tab 08/21/18 12/19/18 Rx simvastatin 40 mg tablet 40 mg PO QAM #90 tab 09/17/18 12/19/18 Rx gabapentin 600 mg tablet 600 mg PO TID #90 tab 10/13/18 12/19/18 Rx omeprazole 20 mg tablet,delayed 20 mg PO DAILY #30 tab 10/13/18 12/19/18 Rx release Zyprexa 30 mg PO BEDTIME #60 tab 10/20/18 12/19/18 Rx clopidogrel 75 mg tablet 75 mg PO DAILY #90 tab 10/20/18 12/19/18 Rx metformin 1,000 mg tablet 1,000 mg PO BID #60 tab 11/11/18 12/19/18 Rx lorazepam 2 mg tablet 2 mg PO BEDTIME PRN #20 tab 11/12/18 12/19/18 Rx buspirone 5 mg tablet 10 mg PO BID #120 tab 12/09/18 12/19/18 Rx gabapentin 600 mg PO TID 12/19/18 12/19/18 History Allergies Allergy/AdvReac Type Severity Reaction Status Date / Time Sulfa (Sulfonamide Allergy Severe RASH, Verified 12/19/18 10:09 Antibiotics) SWELLING, [SULFA (SULFONAMIDE ITCHING ANTIBIOTICS)] Penicillins [PENICILLINS] Allergy Intermediate RASH, Verified 12/19/18 10:09 SWELLING, ITCHING tramadol [TRAMADOL] Allergy Intermediate RASH Verified 12/19/18 10:09 hydromorphone [From DILAUDID] AdvReac Severe RASH, Verified 12/19/18 10:09 SWELLING, ITCHING ketorolac [From TORADOL] AdvReac Intermediate RASH Verified 12/19/18 10:09 Review of Systems Review of Systems All systems reviewed & are unremarkable except as noted in HPI and below Eyes Comments: Loss of vision in the lower part of her left eye due to some event that has required her to be on Plavix. 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 Exam Vital Signs (past 8 hours): - 12/19/18 10:20 Temperature 97.7 F Pulse Rate 122 H Respiratory Rate 16 Blood Pressure 154/97 H Pulse Oximetry 93 Oxygen Delivery Method Room Air Narrative Exam Narrative: Pleasant cooperative patient no apparent distress. Lungs are clear to auscultation. No rales or rhonchi. Heart regular rate and rhythm no murmur gallop. Abdomen is soft nontender without mass. Scarring noted. No obvious hernias. Patient is alert and oriented x3. Assessment & Plan Assessment & Plan narrative: The patient for a screening colonoscopy. I have discussed the procedure with them. Risks of bleeding, perforation which would necessitate major operation, failure to find remove all lesions, the potential tattoo were all discussed. All questions were answered. They wished to proceed.
--- NOTE | 2018-12-19 10:49 | PM.PREOP ---
Pre-operative Note Interval Note History & Physical reviewed/Exam performed by Physician: Yes Changes to H&P: No ASA Class (for procedural sedation): II
[2018-12-19] MEDS: fentaNYL 250 MCG/5 ML INJ IV (11:21)
[2018-12-19] MEDS: MIDAZOLAM 5 MG/5 ML VIAL IV (11:22)
--- NOTE | 2018-12-19 11:44 | PM.OP.ENDO ---
Operative Date/Time/Diagnoses Date of procedure: 12/19/18 Time of procedure: 11:45 Pre-op diagnosis: Screening exam. Last exam 20 years ago Post-op diagnosis: same (Multiple polyps. Extensive doherty colonic diverticulosis) Procedure & Clinicians Study performed: Colonoscopy with hot snare polypectomy and cold biopsy Same procedure as scheduled: Yes Indications: Screening Surgeon: Serafin Calderon Procedure Notes SCOAP/Timeout: Performed Procedure in detail: The patient was placed in the left lateral decubitus position and underwent IV sedation directed by the surgeon consisting of fentanyl and Versed. Digital exam was remarkable for slight decrease in sphincter tone. The scope was inserted and advanced through the rectum into the sigmoid, descending, transverse, and ascending colon. The patient was noted to have pandiverticulosis. In the transverse colon there were 2 small polyps which I biopsied and removed. The cecum was reached identified by the ileocecal valve and the appendiceal opening. The ileocecal valve was briefly cannulated. The terminal ileum was normal in appearance. The scope was gradually brought out. Additional Polyps were found at about 85 cm near the prior 2 biopsy sites. This was removed with a hot snare and placed in the same container as those polyps. Two additional small polyps were removed with cold biopsy forceps at 55 cm and 1 tiny 1 at 20 cm from the anal verge. The scope gradually brought out and ultimately was retroflexed in the rectum. The appearance was normal. The scope was removed and the patient tolerated the procedure well. This was a rather difficult exam due to the innumerable small folds this patient had. It was difficult to distend her colon in certain areas and she had a small particular its scattered throughout the colon that required frequent washing and suctioning. Scope withdrawal time: 21 min includes biopsy time Sedation minutes: 49 Findings: diverticulosis (Doherty diverticulosis) and polyp (Multiple polyps) Specimen(s): other (Polyps) Complications: none Recommendations: Colonscopy in 3 years (Due to prep in difficulty of exam) Plan for aftercare: Should have 2 days of clear liquids at next colonoscopy Follow up: as needed Disposition: PACU
--- NOTE | 2018-12-19 12:16 | SUR.PHASEII ---
pt sitting up and drinking coffee and eating crackers. pt denies any pain/discomfort or nausea at this time. bed in lowest position and call light given to pt. pt awaiting arrival of friend.
== END 2018-12-19 13:19 | disposition home or self-care (01) ==
PROVIDERS: PCP Family Medicine; Visit Provider Specialist
PROC: 0DJD8ZZ Inspection of Lower Intestinal Tract, Via Natural or Artificial Opening Endoscopic (ICD-10-PCS; CPT 45378; principal; 2018-12-19 11:45)
DX: Z12.11 Encounter for screening for malignant neoplasm of colon (principal); K57.30 Diverticulosis of large intestine without perforation or abscess without bleeding; F41.9 Anxiety disorder, unspecified; J44.9 Chronic obstructive pulmonary disease, unspecified; E03.9 Hypothyroidism, unspecified; F17.210 Nicotine dependence, cigarettes, uncomplicated; D12.2 Benign neoplasm of ascending colon
CPT/HCPCS: 45385; 45380; 88305; 99152; 99153; J2250; J3010

== ENCOUNTER → 2018-12-23 10:40 | Outpatient (CLI) | payer MEDICARE, MEDICAID, SELFPAY ==
--- NOTE | 2018-12-23 11:08 | DI.CT.S_ITS ---
PROCEDURE: CT ABDOMEN PELVIS W CON INDICATIONS: recurrent flank hernia TECHNIQUE: After the administration of oral and intravenous contrast, 5 mm thick sections acquired from the diaphragms to the symphysis. 5 mm thick coronal and sagittal reformats were performed. For radiation dose reduction, the following was used: automated exposure control, adjustment of mA and/or kV according to patient size. COMPARISON: [facility], CT, CT ABDOMEN WO [facility], 09/30/2018, 11:06. FINDINGS: Image quality: Excellent. ABDOMEN: Lung bases: Scarring within the right lower lobe is present. Lung bases are otherwise clear. Heart size is normal. There is calcification of the coronary vasculature. Small pericardial effusion, as before. Bilateral fat-containing hemidiaphragmatic hernias are present postero-medially measuring 30 mm on the right and 40 mm on the left. Solid organs: Liver is normal in size and enhancement. Gallbladder is within normal limits. Biliary system is non-dilated. Pancreas enhances normally. Spleen is normal in size and enhancement. Mild diffuse left adrenal thickening is present, as before. There is a nodule within the anterior limb of the right adrenal measuring 12 mm, which previously demonstrated Hounsfield units of 8, consistent with an adenoma. Kidneys are normal in size and enhancement, without hydronephrosis. Peritoneum and bowel: Stomach, small bowel, and colon loops are normal in caliber and wall thickness. No free fluid or air. Nodes and vessels: No retroperitoneal or mesenteric adenopathy. Aorta and inferior vena cava are normal in caliber. No change in 9 mm diameter aneurysm involving the inferior splenic hilum. Miscellaneous: No change in small fat-containing periumbilical hernia. Fat-containing left flank hernia is present, as before, currently measuring 77 mm, with decreased, small amount of overlying subcutaneous fluid. PELVIS: Genitourinary: Bladder wall thickness is normal. Miscellaneous: No inguinal hernias or adenopathy. Bones: No suspicious bony lesions. L2-L5 fusion. Multilevel degenerative disc disease. No vertebral body compression fractures. IMPRESSION: 1. Fat-containing left flank hernia with overlying fluid, which is decreased. 2. Small pericardial effusion. 3. Small splenic artery aneurysm is unchanged. 4. Coronary artery disease. 5. Right adrenal adenoma. Dictated by: Fabiano Togn M.D. on 12/23/2018 at 11:38 Approved by: Fabiano Tong M.D. on 12/23/2018 at 11:45
== END ==
PROVIDERS: PCP Family Medicine; Visit Provider Surgery
DX: K45.8 Other specified abdominal hernia without obstruction or gangrene (principal); I31.3 Pericardial effusion (noninflammatory); I72.8 Aneurysm of other specified arteries; I25.10 Atherosclerotic heart disease of native coronary artery without angina pectoris; D35.01 Benign neoplasm of right adrenal gland
CPT/HCPCS: 74177; Q9967

== ENCOUNTER → 2019-02-20 11:19 | Outpatient (CLI) | payer MEDICARE, MEDICAID, SELFPAY ==
[2019-02-20 12:30] LABS: Alanine Aminotransferase 24 IU/L (9-52); Albumin Globulin Ratio 1.4 (1.0-2.8); Alkaline Phosphatase 79 U/L (38-126); Aspartate Aminotransferase 22 IU/L (14-36); Bilirubin Total 0.5 mg/dL (0.2-1.3); Bilirubin Unconjugated 0.2 mg/dL (0.0-1.1); Globulin 2.8 g/dL (1.7-4.1); HEMOLYSIS 18 (0-50); Total Protein 6.8 g/dL (6.3-8.2)
== END ==
PROVIDERS: PCP Family Medicine; Visit Provider Family Medicine
DX: B35.1 Tinea unguium (principal); Z51.81 Encounter for therapeutic drug level monitoring
CPT/HCPCS: 36415; 80076

== ENCOUNTER → 2019-05-27 09:36 | Outpatient (CLI) | payer MEDICARE, MEDICAID, SELFPAY ==
[2019-05-27 10:48] LABS: Alanine Aminotransferase 15 IU/L (9-52); Albumin 4.2 g/dL (3.5-5.0); Albumin Globulin Ratio 1.4 (1.0-2.8); Alkaline Phosphatase 75 U/L (38-126); Aspartate Aminotransferase 20 IU/L (14-36); BUN Creatinine Ratio 16.7 (6-22); Bilirubin Total 0.7 mg/dL (0.2-1.3); Blood Urea Nitrogen 10 mg/dL (7-17); Calcium 10.1 mg/dL (8.4-10.2); Carbon Dioxide 27 mmol/L (22-32); Chloride 102 mmol/L (98-107); Cholesterol 124 mg/dL (140-199); Estimated Glomerular Filt Rate > 60.0 mL/min (>60); Globulin 2.9 g/dL (1.7-4.1); Glucose 136 mg/dL (80-110); HDL Cholesterol 37 mg/dL (40-60); HEMOLYSIS < 15 (0-50); LDL Cholesterol Calculated 68 mg/dL (<100); Potassium 4.6 mmol/L (3.4-5.1); Sodium 141 mmol/L (137-145); Total Protein 7.1 g/dL (6.3-8.2); Triglycerides 96 mg/dL (35-150)
[2019-05-27 10:50] LABS: Hemoglobin A1C% w Est Avg Glu 6.8 % (4.0-6.0)
== END ==
PROVIDERS: PCP Family Medicine; Visit Provider Family Medicine
DX: E11.9 Type 2 diabetes mellitus without complications (principal)
CPT/HCPCS: 36415; 80053; 80061; 83036

== ENCOUNTER → 2019-11-23 09:17 | Outpatient (CLI) | payer MEDICARE, MEDICAID, SELFPAY ==
[2019-11-23 10:11] LABS: Hemoglobin A1C% w Est Avg Glu 7.5 % (4.0-6.0)
[2019-11-23 10:50] LABS: Alanine Aminotransferase 13 IU/L (<35); Albumin 4.3 g/dL (3.5-5.0); Albumin Globulin Ratio 1.3 (1.0-2.8); Alkaline Phosphatase 86 U/L (38-126); Aspartate Aminotransferase 23 IU/L (14-36); BUN Creatinine Ratio 26.3 (6-22); Bilirubin Total 0.4 mg/dL (0.2-1.3); Blood Urea Nitrogen 15 mg/dL (7-17); Calcium 10.2 mg/dL (8.4-10.2); Carbon Dioxide 31 mmol/L (22-32); Chloride 103 mmol/L (98-107); Estimated Glomerular Filt Rate > 60.0 mL/min (>60); Globulin 3.4 g/dL (1.7-4.1); Glucose 151 mg/dL (80-110); HEMOLYSIS < 15 (0-50); Potassium 5.2 mmol/L (3.4-5.1); Sodium 141 mmol/L (137-145); Total Protein 7.7 g/dL (6.3-8.2)
[2019-11-23 10:52] LABS: Creatinine Urine Random 21.7 mg/dL
[2019-11-23 10:57] LABS: Microalbumi Creatinin Ratio Ur 55.2 ug/mg CR (<30); Microalbumin Urine Random 1.2 mg/dL (0-1.6)
== END ==
PROVIDERS: PCP Family Medicine; Referring Provider Family Medicine; Visit Provider Family Medicine
DX: E11.9 Type 2 diabetes mellitus without complications (principal)
CPT/HCPCS: 36415; 80053; 82043; 82570; 83036

== ENCOUNTER → 2020-02-12 10:28 | Outpatient (CLI) | payer MEDICARE, MEDICAID, SELFPAY ==
[2020-02-12 12:39] LABS: Alanine Aminotransferase 12 IU/L (<35); Albumin 4.2 g/dL (3.5-5.0); Albumin Globulin Ratio 1.5 (1.0-2.8); Alkaline Phosphatase 84 U/L (38-126); Aspartate Aminotransferase 21 IU/L (14-36); BUN Creatinine Ratio 23.2 (6-22); Bilirubin Total 0.4 mg/dL (0.2-1.3); Blood Urea Nitrogen 13 mg/dL (7-17); Carbon Dioxide 27 mmol/L (22-32); Chloride 103 mmol/L (98-107); Estimated Glomerular Filt Rate > 60.0 mL/min (>60); Globulin 2.8 g/dL (1.7-4.1); Glucose 134 mg/dL (80-110); HEMOLYSIS < 15 (0-50); Potassium 5.3 mmol/L (3.4-5.1); Sodium 139 mmol/L (137-145)
[2020-02-12 12:42] LABS: Hemoglobin A1C% w Est Avg Glu 7.1 % (4.0-6.0)
[2020-02-12 12:46] LABS: Add Manual Diff / Slide Review NO; Basophils Absolute Auto 0 /uL (0-100); Basophils Percent Auto 0.2 % (0-2); Eosinophils Absolute Auto 200 /uL (0-450); Eosinophils Percent Auto 1.5 % (2-4); Hematocrit 51.2 % (36-46); Lymphocytes Absolute Auto 2900 /uL (1100-4500); Lymphocytes Percent Auto 28.8 % (25-40); Mean Corpuscular HGB Conc 33.1 % (30-36); Mean Corpuscular Hemoglobin 30.8 PG (26-34); Monocytes Absolute Auto 500 /uL (0-900); Monocytes Percent Auto 5.1 % (3-14); Neutrophils Absolute Auto 6600 /uL (1500-7000); Neutrophils Percent Auto 64.4 % (50-75); Platelet Count 185 X10^3/uL (150-400); White Blood Cell Count 10.2 X10^3/uL (4.5-11.0)
== END ==
PROVIDERS: PCP Family Medicine; Referring Provider Family Medicine; Visit Provider Family Medicine
DX: E11.9 Type 2 diabetes mellitus without complications (principal); E78.5 Hyperlipidemia, unspecified; I10 Essential (primary) hypertension
CPT/HCPCS: 36415; 80053; 83036; 85025

== ENCOUNTER → 2020-05-17 09:02 | Outpatient (CLI) | payer MEDICARE, MEDICAID, SELFPAY ==
--- NOTE | 2020-05-17 | DI.MG.S_ITS ---
BILATERAL DIGITAL SCREENING MAMMOGRAM 3D/2D WITH CAD: 05/17/2020 CLINICAL: Baseline exam. Routine screening. No prior exams were available for comparison. There are scattered fibroglandular elements in both breasts. Current study was also evaluated with a Computer Aided Detection (CAD) system. There are benign calcifications in both breasts. There also are benign vascular calcifications in both breasts. No significant masses, calcifications, or other findings are seen in either breast. IMPRESSION: BENIGN There is no mammographic evidence of malignancy. A 1 year screening mammogram is recommended. This exam was interpreted at Station ID: [id number]. NOTE: For mammograms, a report in lay terms will be sent to the patient. Approximately 15% of breast malignancies will not be visualized mammographically. In the management of a palpable breast mass, a negative mammogram must not discourage biopsy of a clinically suspicious lesion. Electronically Signed By: Amie mckeon/robe:05/17/2020 09:23:41 letter sent: Normal Exam ACR BI-RADS Category 2: Benign Finding(s) 3342F
== END ==
PROVIDERS: PCP Family Medicine; Referring Provider Family Medicine; Visit Provider Family Medicine
DX: Z12.31 Encounter for screening mammogram for malignant neoplasm of breast (principal)
CPT/HCPCS: 77063; 77067

== ENCOUNTER 2020-06-08 10:15 | Outpatient (RCR) | payer MEDICARE, MEDICAID, SELFPAY ==
--- NOTE | 2020-05-30 15:51 | PT.OIE ---
Current Diagnoses Lumbago with sciatica, right side (05/30/20) Strain of muscle, fascia and tendon of lower back, initial encounter (05/30/20) History of falling (05/30/20) Past Medical History (Last Updated 03/16/20 @ 16:[address] DO) Anxiety (Chronic 1969) Cataracts, bilateral (Chronic Unknown) Chickenpox (Resolved 1954) Chronic back pain (Chronic 2001) COPD (chronic obstructive pulmonary disease) (Chronic 2012) Depression (Chronic 1992) Diverticular disease (Chronic 2004) Fall (Acute) Foot pain (Chronic 2016) Hypothyroidism (Chronic 2001) Lumbar strain (Acute) Measles (Resolved 1959) Mumps (Resolved 1959) Polycythemia (Acute) Past Surgical History (Last Reviewed 09/07/19 @ 11:[address] DO) History of back surgery (Resolved) Hx of hernia repair (Resolved 10/2016) Visit Care Team Role Provider Type Lane Gillespie DO Attending Provider Physician Primary Care Provider Referring Provider Specialty: [facility] Address: [address] [place] [address] Email: [email or web address] Physical Therapy Initial Evaluation PT-OP-A Visit Information Start: 05/30/20 07:31 Freq: Status: Active Protocol: Document 05/30/20 10:15 AMB (Rec: 05/30/20 15:29 AMB [email or web address]) Out-Patient Physical Therapy Visit Information Visit Information Visit Type Initial Evaluation Visit Start Time 10:15 Visit Stop Time 11:00 Total Visit Minutes 45 Visit Number 1 PT-OP-B Current Condition Start: 05/30/20 07:31 Freq: Status: Active Protocol: Document 05/30/20 10:15 AMB (Rec: 05/30/20 10:30 AMB [id number]) Current Condition History of Current Condition Onset Date 2010 Current Complaints central low back pain History of Current Condition Vanda reports worsening back pain for the last 2 years. She states she had a lumbar fusion for scoliosis and did a surgery with Dr. Dwyer in 2010. Prior to that she had a laminectomy that got infected . She does report R sided sciatica. Reports back pain had improved after the surgery but is getting worse again. Sitting increases the pain, reclining increases the pain, feels like she needs to sit straight up. No pain with lying in bed. Walks 1/4 mile a day, recently lost weight, recently stopped smoking. Does have a caregiver 4x/week 8:30-12:[address] because of vision. 2 falls in the last 6 months. Last fall she reports she was getting out of the shower alone, stepped out and slipped, was able to get up off floor independently. Denies increased back pain s/p fall. Does have difficulty squatting, lifting things from the floor. Treatment Goals Patient/Caregiver Goals Be normal again. Would like to go swimming, grocery shopping. Prior Functional Status Baseline Function- ADL's Modified Independent Baseline Function- Mobility Modified Independent Current Functional Impairments (Reported) Functional Limitations- ADL's Difficulty picking things up, cleaning, cooking, showering. Personal Factors Other Personal Factors That May Effect Reduced vision, neuropathy, Therapy/Recovery DMII PT-OP-C Subjective Start: 05/30/20 07:31 Freq: Status: Active Protocol: Document 05/30/20 10:15 AMB (Rec: 05/30/20 15:29 AMB [email or web address]) Patient Questionnaires Oswestry Low Back Index Oswestry Score 58 Oswestry Impairment 40 to 59% Impaired (Score 40- 59) OP-PT Pain Assessment Pain Assessment Grid Paper Pain Assessment Grid Completed Yes Comments Pain Comments 7/10 low back pain PT-OP-G Mobility & Gait Start: 05/30/20 07:31 Freq: Status: Active Protocol: Document 05/30/20 10:15 AMB (Rec: 05/30/20 15:29 AMB [email or web address]) OP Gait Assessment Comments Gait Comments Stiffness through low back, reduced trunk rotation with increased lateral sway and wide base of support PT-OP-J Posture/Palpation/Skin Start: 05/30/20 07:31 Freq: Status: Active Protocol: Document 05/30/20 10:15 AMB (Rec: 05/30/20 10:45 AMB [id number]) Posture Evaluation Comments Posture Comments Flat lumbar spine PT-OP-K Range of Motion Start: 05/30/20 07:31 Freq: Status: Active Protocol: Document 05/30/20 10:15 AMB (Rec: 05/30/20 10:34 AMB [id number]) Lumbar Spine Range of Motion Lumbar Spine Active Degrees Testing Position Standing Flexion 20 Extension 20 Lateral Flexion Left 15 Lateral Flexion Right 10 ROM Limitations Pain Comments flexion increased pain Hip Goniometric Range of Motion Hip Left Passive Straight Leg Raise 70 Right Passive Straight Leg Raise 35 PT-OP-M Strength Start: 05/30/20 07:31 Freq: Status: Active Protocol: Document 05/30/20 10:15 AMB (Rec: 05/30/20 10:45 AMB [id number]) Hip Strength Hip Manual Muscle Testing Right Flexion (L2) 4 Good Extension (S1) 3+ Fair+ Abduction 3- Fair- Adduction 4- Good- Left Flexion (L2) 4 Good Abduction 3 Fair Adduction 4 Good Knee Strength Knee Manual Muscle Testing Right Flexion (S2) 4 Good Extension (L3) 4 Good Left Flexion (S2) 4+ Good+ Extension (L3) 4+ Good+ Ankle/Foot Strength Ankle and Foot Manual Muscle Testing Right Dorsiflexion (L4) 4 Good Left Dorsiflexion (L4) 4 Good PT-OP-Q Treatments Start: 05/30/20 07:31 Freq: Status: Active Protocol: Document 05/30/20 10:15 AMB (Rec: 05/30/20 15:29 AMB [email or web address]) Therapeutic Exercises Supine Exercises 1 Supine Exercise Name hooklying hip ER with t band Resistance #1 t band Comments with vc for TA stabilization PT-OP-T Assessment and Plan Start: 05/30/20 07:31 Freq: Status: Active Protocol: Document 05/30/20 10:15 AMB (Rec: 05/30/20 15:29 AMB [email or web address]) Physical Therapy Assessment Rehab Potential Rehabilitation Potential Fair Evaluation Complexity Number of Personal Factors/Comorbidities 3 or More Number of Body Systems Impaired 4 or More Clinical Presentation at Evaluation Evolving Impairments Impairments Functional Activities,Gait, Pain,Posture,ROM,Strength Other Concerns Fall Risk yes Goals Three Impairment Gait Short Term Goal (STG) Vanda will improve her gait so that she can walk for 6 minutes over smooth surfaces without an increase in her baseline pain. STG Duration 4 weeks Snf Goal (LTG) Vanda will ambulate throughout the grocery store for 30 minutes without increasing her baseline back pain. LTG Duration 8 weeks Two Impairment Strength Short Term Goal (STG) Vanda will be independent with a HEP to improve her core and hip strength. STG Duration 4 weeks Swatch Paster Goal (LTG) Vanda will improve her core and hip strength so that she can perform a partial squat to pickup driver a light item from the floor without having to pull herself up with her upper extremities. LTG Duration 8 weeks One Impairment ROM Short Term Goal (STG) Vanda will improve her lumbar flexion to 30 degrees with 5/ 10 back pain or less. STG Duration 4 weeks Swatch Paster Goal (LTG) Vanda will improve her straight leg raise ROM to 50 degrees on the right to show reduced sciatic symptoms. LTG Duration 8 weeks Assessment Summary Assessment Vanda attends physical therapy with a 2 year exacerbation of chronic back pain. She had a lumbar fusion years ago, and reports that the pain has been worsening. She does have significant weakness, pain, and reduced range of motion. She has difficulty walking, sitting, squatting, bending due to the pain. She will benefit from physical therapy to help her establish a program so that she can be more independent in her daily life. Physical Therapy Plan Frequency and Duration Frequency of Treatment 2x/Week Duration of Treatment 8 weeks Plan of Care Start Date 05/30/20 Plan of Care End Date 07/18/20 Therapeutic Interventions Therapeutic Interventions Balance Training,Gait Training ,Home Exercise Program,Manual Therapy,Neuromuscular Re- education,Self-Care/Home Management,Therapeutic Activities,Therapeutic Exercises Modalities Cold Pack/Ice Massage,Electric Stimulation,Hot Packs Next Visit Focus/Plan Next Note Type Treatment Note Next Visit Plan Begin with core stabilization HEP
--- NOTE | 2020-05-30 15:51 | PT.OPPOC ---
Physical, Occupational & Speech Therapy At [facility] Current Diagnoses Lumbago with sciatica, right side (05/30/20) Strain of muscle, fascia and tendon of lower back, initial encounter (05/30/20) History of falling (05/30/20) Visit Care Team Role Provider Type Lane Gillespie DO Attending Provider Physician Primary Care Provider Referring Provider Specialty: [facility] Address: [address] [place] [address], [facility] Email: [email or web address] Plan Of Care PT-OP-T Assessment and Plan Start: 05/30/20 07:31 Freq: Status: Active Protocol: Document 05/30/20 10:15 AMB (Rec: 05/30/20 15:29 AMB [id number]) Physical Therapy Assessment Rehab Potential Rehabilitation Potential Fair Evaluation Complexity Number of Personal Factors/Comorbidities 3 or More Number of Body Systems Impaired 4 or More Clinical Presentation at Evaluation Evolving Impairments Impairments Functional Activities,Gait, Pain,Posture,ROM,Strength Other Concerns Fall Risk yes Goals Three Impairment Gait Short Term Goal (STG) Vanda will improve her gait so that she can walk for 6 minutes over smooth surfaces without an increase in her baseline pain. STG Duration 4 weeks Shelter Supervisor Goal (LTG) Vanda will ambulate throughout the grocery store for 30 minutes without increasing her baseline back pain. LTG Duration 8 weeks Two Impairment Strength Short Term Goal (STG) Vanda will be independent with a HEP to improve her core and hip strength. STG Duration 4 weeks Shelter Supervisor Goal (LTG) Vanda will improve her core and hip strength so that she can perform a partial squat to picker and packer a light item from the floor without having to pull herself up with her upper extremities. LTG Duration 8 weeks One Impairment ROM Short Term Goal (STG) Vanda will improve her lumbar flexion to 30 degrees with 5/ 10 back pain or less. STG Duration 4 weeks Shelter Supervisor Goal (LTG) Vanda will improve her straight leg raise ROM to 50 degrees on the right to show reduced sciatic symptoms. LTG Duration 8 weeks Assessment Summary Assessment Vanda attends physical therapy with a 2 year exacerbation of chronic back pain. She had a lumbar fusion years ago, and reports that the pain has been worsening. She does have significant weakness, pain, and reduced range of motion. She has difficulty walking, sitting, squatting, bending due to the pain. She will benefit from physical therapy to help her establish a program so that she can be more independent in her daily life. Physical Therapy Plan Frequency and Duration Frequency of Treatment 2x/Week Duration of Treatment 8 weeks Plan of Care Start Date 05/30/20 Plan of Care End Date 07/18/20 Therapeutic Interventions Therapeutic Interventions Balance Training,Gait Training ,Home Exercise Program,Manual Therapy,Neuromuscular Re- education,Self-Care/Home Management,Therapeutic Activities,Therapeutic Exercises Modalities Cold Pack/Ice Massage,Electric Stimulation,Hot Packs Next Visit Focus/Plan Next Note Type Treatment Note Next Visit Plan Begin with core stabilization HEP Plan of Care Dates Plan of Care Start Date 05/30/20 Plan of Care End Date 07/18/20 Electronically Signed by: Malgorzata Dent, PT 05/30/20 [id number] Please Sign and Return: I have reviewed this Plan of Care and certify that the skilled therapy services above are required to meet the patient?s needs. Physician Signature Date Printed Name and Credentials Clinical Instructor Signature Printed Name and Credentials
--- NOTE | 2020-06-01 11:25 | PT.OTN ---
Current Diagnoses Lumbago with sciatica, right side (06/01/20) Strain of muscle, fascia and tendon of lower back, initial encounter (06/01/20) History of falling (06/01/20) Physical Therapy Treatment Note PT-OP-A Visit Information Start: 05/30/20 07:31 Freq: Status: Active Protocol: Document 06/01/20 10:15 AMB (Rec: 06/01/20 10:47 AMB [id number]) Out-Patient Physical Therapy Visit Information Visit Information Visit Type Treatment Note Visit Start Time 10:15 Visit Stop Time 11:00 Total Visit Minutes 45 Visit Number 2 PT-OP-B Current Condition Start: 05/30/20 07:31 Freq: Status: Active Protocol: Document 05/30/20 10:15 AMB (Rec: 05/30/20 10:30 AMB [id number]) Current Condition History of Current Condition Onset Date 2010 Current Complaints central low back pain History of Current Condition Vanda reports worsening back pain for the last 2 years. She states she had a lumbar fusion for scoliosis and did a surgery with Dr. Dwyer in 2010. Prior to that she had a laminectomy that got infected . She does report R sided sciatica. Reports back pain had improved after the surgery but is getting worse again. Sitting increases the pain, reclining increases the pain, feels like she needs to sit straight up. No pain with lying in bed. Walks 1/4 mile a day, recently lost weight, recently stopped smoking. Does have a caregiver 4x/week 8:30-12:[address] because of vision. 2 falls in the last 6 months. Last fall she reports she was getting out of the shower alone, stepped out and slipped, was able to get up off floor independently. Denies increased back pain s/p fall. Does have difficulty squatting, lifting things from the floor. Treatment Goals Patient/Caregiver Goals Be normal again. Would like to go swimming, grocery shopping. Prior Functional Status Baseline Function- ADL's Modified Independent Baseline Function- Mobility Modified Independent Current Functional Impairments (Reported) Functional Limitations- ADL's Difficulty picking things up, cleaning, cooking, showering. Personal Factors Other Personal Factors That May Effect Reduced vision, neuropathy, Therapy/Recovery DMII PT-OP-C Subjective Start: 05/30/20 07:31 Freq: Status: Active Protocol: Document 06/01/20 10:15 AMB (Rec: 06/01/20 10:47 AMB [id number]) OP-PT Subjective Patient Comments Patient Comments Pt was sore after last appt but felt that ice was quite helpful Rates pain today at 5 /10. PT-OP-G Mobility & Gait Start: 05/30/20 07:31 Freq: Status: Active Protocol: Document 05/30/20 10:15 AMB (Rec: 05/30/20 15:29 AMB [email or web address]) OP Gait Assessment Comments Gait Comments Stiffness through low back, reduced trunk rotation with increased lateral sway and wide base of support PT-OP-J Posture/Palpation/Skin Start: 05/30/20 07:31 Freq: Status: Active Protocol: Document 05/30/20 10:15 AMB (Rec: 05/30/20 10:45 AMB [id number]) Posture Evaluation Comments Posture Comments Flat lumbar spine PT-OP-K Range of Motion Start: 05/30/20 07:31 Freq: Status: Active Protocol: Document 05/30/20 10:15 AMB (Rec: 05/30/20 10:34 AMB [id number]) Lumbar Spine Range of Motion Lumbar Spine Active Degrees Testing Position Standing Flexion 20 Extension 20 Lateral Flexion Left 15 Lateral Flexion Right 10 ROM Limitations Pain Comments flexion increased pain Hip Goniometric Range of Motion Hip Left Passive Straight Leg Raise 70 Right Passive Straight Leg Raise 35 PT-OP-M Strength Start: 05/30/20 07:31 Freq: Status: Active Protocol: Document 05/30/20 10:15 AMB (Rec: 05/30/20 10:45 AMB [id number]) Hip Strength Hip Manual Muscle Testing Right Flexion (L2) 4 Good Extension (S1) 3+ Fair+ Abduction 3- Fair- Adduction 4- Good- Left Flexion (L2) 4 Good Abduction 3 Fair Adduction 4 Good Knee Strength Knee Manual Muscle Testing Right Flexion (S2) 4 Good Extension (L3) 4 Good Left Flexion (S2) 4+ Good+ Extension (L3) 4+ Good+ Ankle/Foot Strength Ankle and Foot Manual Muscle Testing Right Dorsiflexion (L4) 4 Good Left Dorsiflexion (L4) 4 Good PT-OP-Q Treatments Start: 05/30/20 07:31 Freq: Status: Active Protocol: Document 06/01/20 10:15 AMB (Rec: 06/01/20 10:47 AMB [id number]) Therapeutic Exercises Supine Exercises 4 Supine Exercise Name hamstring stretch Reps/Minutes 30x2 3 Supine Exercise Name march with TA Reps/Minutes 5 min 2 Supine Exercise Name hip flexor stretch Reps/Minutes 30x2 1 Supine Exercise Name hooklying hip ER with t band Resistance #1 t band Comments with vc for TA stabilization Sitting Exercises 1 Sitting Exercise Name pelvic tilt on 65cm ball Reps/Minutes 5 min PT-OP-T Assessment and Plan Start: 05/30/20 07:31 Freq: Status: Active Protocol: Document 06/01/20 10:15 AMB (Rec: 06/01/20 10:47 AMB [id number]) Physical Therapy Assessment Assessment Summary Assessment Vanda attends PT with continued back pain and poor core stability, states core strength has been poor since the 70s when she had an open bypass. Was able to tolerate core exercises well during PT, will need to recheck on if she had delayed soreness. Physical Therapy Plan Next Visit Focus/Plan Next Note Type Treatment Note Next Visit Plan Begin with core stabilization HEP
--- NOTE | 2020-06-08 10:59 | PT.OTN ---
Current Diagnoses Lumbago with sciatica, right side (06/08/20) Strain of muscle, fascia and tendon of lower back, initial encounter (06/08/20) History of falling (06/08/20) Physical Therapy Treatment Note PT-OP-A Visit Information Start: 05/30/20 07:31 Freq: Status: Active Protocol: Document 06/08/20 10:15 AMB (Rec: 06/08/20 10:52 AMB [id number]) Out-Patient Physical Therapy Visit Information Visit Information Visit Type Treatment Note Visit Start Time 10:15 Visit Stop Time 11:00 Total Visit Minutes 45 Visit Number 3 PT-OP-B Current Condition Start: 05/30/20 07:31 Freq: Status: Active Protocol: Document 05/30/20 10:15 AMB (Rec: 05/30/20 10:30 AMB [id number]) Current Condition History of Current Condition Onset Date 2010 Current Complaints central low back pain History of Current Condition Vanda reports worsening back pain for the last 2 years. She states she had a lumbar fusion for scoliosis and did a surgery with Dr. Dwyer in 2010. Prior to that she had a laminectomy that got infected . She does report R sided sciatica. Reports back pain had improved after the surgery but is getting worse again. Sitting increases the pain, reclining increases the pain, feels like she needs to sit straight up. No pain with lying in bed. Walks 1/4 mile a day, recently lost weight, recently stopped smoking. Does have a caregiver 4x/week 8:30-12:[address] because of vision. 2 falls in the last 6 months. Last fall she reports she was getting out of the shower alone, stepped out and slipped, was able to get up off floor independently. Denies increased back pain s/p fall. Does have difficulty squatting, lifting things from the floor. Treatment Goals Patient/Caregiver Goals Be normal again. Would like to go swimming, grocery shopping. Prior Functional Status Baseline Function- ADL's Modified Independent Baseline Function- Mobility Modified Independent Current Functional Impairments (Reported) Functional Limitations- ADL's Difficulty picking things up, cleaning, cooking, showering. Personal Factors Other Personal Factors That May Effect Reduced vision, neuropathy, Therapy/Recovery DMII PT-OP-C Subjective Start: 05/30/20 07:31 Freq: Status: Active Protocol: Document 06/08/20 10:15 AMB (Rec: 06/08/20 10:52 AMB [id number]) OP-PT Subjective Patient Comments Patient Comments Vanda reports she was very sore after last week, difficulty walking and had to cancel an appt because she was just too painful. Has been icing and resting laying on her back. PT-OP-G Mobility & Gait Start: 05/30/20 07:31 Freq: Status: Active Protocol: Document 05/30/20 10:15 AMB (Rec: 05/30/20 15:29 AMB [id number]) OP Gait Assessment Comments Gait Comments Stiffness through low back, reduced trunk rotation with increased lateral sway and wide base of support PT-OP-J Posture/Palpation/Skin Start: 05/30/20 07:31 Freq: Status: Active Protocol: Document 05/30/20 10:15 AMB (Rec: 05/30/20 10:45 AMB [id number]) Posture Evaluation Comments Posture Comments Flat lumbar spine PT-OP-K Range of Motion Start: 05/30/20 07:31 Freq: Status: Active Protocol: Document 05/30/20 10:15 AMB (Rec: 05/30/20 10:34 AMB [id number]) Lumbar Spine Range of Motion Lumbar Spine Active Degrees Testing Position Standing Flexion 20 Extension 20 Lateral Flexion Left 15 Lateral Flexion Right 10 ROM Limitations Pain Comments flexion increased pain Hip Goniometric Range of Motion Hip Left Passive Straight Leg Raise 70 Right Passive Straight Leg Raise 35 PT-OP-M Strength Start: 05/30/20 07:31 Freq: Status: Active Protocol: Document 05/30/20 10:15 AMB (Rec: 05/30/20 10:45 AMB [id number]) Hip Strength Hip Manual Muscle Testing Right Flexion (L2) 4 Good Extension (S1) 3+ Fair+ Abduction 3- Fair- Adduction 4- Good- Left Flexion (L2) 4 Good Abduction 3 Fair Adduction 4 Good Knee Strength Knee Manual Muscle Testing Right Flexion (S2) 4 Good Extension (L3) 4 Good Left Flexion (S2) 4+ Good+ Extension (L3) 4+ Good+ Ankle/Foot Strength Ankle and Foot Manual Muscle Testing Right Dorsiflexion (L4) 4 Good Left Dorsiflexion (L4) 4 Good PT-OP-Q Treatments Start: 05/30/20 07:31 Freq: Status: Active Protocol: Document 06/08/20 10:15 AMB (Rec: 06/08/20 10:52 AMB [id number]) Therapeutic Exercises Supine Exercises 9 Supine Exercise Name TA stab with legs on 45cm ball Reps/Minutes 10 Comments hip rotation and then hip flex ext 8 Supine Exercise Name piriformis stretch Reps/Minutes 30x2 7 Supine Exercise Name single knee to chest Reps/Minutes 10 6 Supine Exercise Name hooklying TA with hip add Equipment Used ball Reps/Minutes 2x10 5 Supine Exercise Name LTR Reps/Minutes 3 min 4 Supine Exercise Name hamstring stretch Reps/Minutes 30x2 3 Supine Exercise Name march with TA Reps/Minutes 5 min 1 Supine Exercise Name hooklying hip ER with t band Resistance #1 t band Comments with vc for TA stabilization Sidelying Exercises 1 Sidelying Exercise Name clamshell Reps/Minutes 2x10 PT-OP-T Assessment and Plan Start: 05/30/20 07:31 Freq: Status: Active Protocol: Document 06/08/20 10:15 AMB (Rec: 06/08/20 10:52 AMB [id number]) Physical Therapy Assessment Assessment Summary Assessment Vanda had increased pain s/p hip flexor stretch, so put that on pause for now. Reportedly did ok with modifed exercise today in the clinic, but will need to see how she does the day after before progressing HEP. Physical Therapy Plan Next Visit Focus/Plan Next Note Type Treatment Note Next Visit Plan Begin with core stabilization HEP
--- NOTE | 2020-07-11 15:40 | PT.OPDS ---
Current Diagnoses Lumbago with sciatica, right side (06/08/20) Strain of muscle, fascia and tendon of lower back, initial encounter (06/08/20) History of falling (06/08/20) Visit Care Team Role Provider Type Lane Gillespie DO Attending Provider Physician Primary Care Provider Referring Provider Specialty: [facility] Address: [address] [place] [address], [facility] Email: [email or web address] Visit Number Visit Number 3 Discharge Summary PT-OP-B Current Condition Start: 05/30/20 07:31 Freq: Status: Active Protocol: Document 05/30/20 10:15 AMB (Rec: 05/30/20 10:30 AMB [id number]) Current Condition History of Current Condition Onset Date 2010 Current Complaints central low back pain History of Current Condition Vanda reports worsening back pain for the last 2 years. She states she had a lumbar fusion for scoliosis and did a surgery with Dr. Dwyer in 2010. Prior to that she had a laminectomy that got infected . She does report R sided sciatica. Reports back pain had improved after the surgery but is getting worse again. Sitting increases the pain, reclining increases the pain, feels like she needs to sit straight up. No pain with lying in bed. Walks 1/4 mile a day, recently lost weight, recently stopped smoking. Does have a caregiver 4x/week 8:30-12:[address] because of vision. 2 falls in the last 6 months. Last fall she reports she was getting out of the shower alone, stepped out and slipped, was able to get up off floor independently. Denies increased back pain s/p fall. Does have difficulty squatting, lifting things from the floor. Treatment Goals Patient/Caregiver Goals Be normal again. Would like to go swimming, grocery shopping. Prior Functional Status Baseline Function- ADL's Modified Independent Baseline Function- Mobility Modified Independent Current Functional Impairments (Reported) Functional Limitations- ADL's Difficulty picking things up, cleaning, cooking, showering. Personal Factors Other Personal Factors That May Effect Reduced vision, neuropathy, Therapy/Recovery DMII PT-OP-C Subjective Start: 05/30/20 07:31 Freq: Status: Active Protocol: Document 06/08/20 10:15 AMB (Rec: 06/08/20 10:52 AMB [id number]) OP-PT Subjective Patient Comments Patient Comments Vanda reports she was very sore after last week, difficulty walking and had to cancel an appt because she was just too painful. Has been icing and resting laying on her back. PT-OP-G Mobility & Gait Start: 05/30/20 07:31 Freq: Status: Active Protocol: Document 05/30/20 10:15 AMB (Rec: 05/30/20 15:29 AMB [email or web address]) OP Gait Assessment Comments Gait Comments Stiffness through low back, reduced trunk rotation with increased lateral sway and wide base of support PT-OP-J Posture/Palpation/Skin Start: 05/30/20 07:31 Freq: Status: Active Protocol: Document 05/30/20 10:15 AMB (Rec: 05/30/20 10:45 AMB [id number]) Posture Evaluation Comments Posture Comments Flat lumbar spine PT-OP-K Range of Motion Start: 05/30/20 07:31 Freq: Status: Active Protocol: Document 05/30/20 10:15 AMB (Rec: 05/30/20 10:34 AMB [id number]) Lumbar Spine Range of Motion Lumbar Spine Active Degrees Testing Position Standing Flexion 20 Extension 20 Lateral Flexion Left 15 Lateral Flexion Right 10 ROM Limitations Pain Comments flexion increased pain Hip Goniometric Range of Motion Hip Left Passive Straight Leg Raise 70 Right Passive Straight Leg Raise 35 PT-OP-M Strength Start: 05/30/20 07:31 Freq: Status: Active Protocol: Document 05/30/20 10:15 AMB (Rec: 05/30/20 10:45 AMB [id number]) Hip Strength Hip Manual Muscle Testing Right Flexion (L2) 4 Good Extension (S1) 3+ Fair+ Abduction 3- Fair- Adduction 4- Good- Left Flexion (L2) 4 Good Abduction 3 Fair Adduction 4 Good Knee Strength Knee Manual Muscle Testing Right Flexion (S2) 4 Good Extension (L3) 4 Good Left Flexion (S2) 4+ Good+ Extension (L3) 4+ Good+ Ankle/Foot Strength Ankle and Foot Manual Muscle Testing Right Dorsiflexion (L4) 4 Good Left Dorsiflexion (L4) 4 Good PT-OP-T Assessment and Plan Start: 05/30/20 07:31 Freq: Status: Active Protocol: Document 07/11/20 15:36 AMB (Rec: 07/11/20 15:40 AMB [email or web address]) Physical Therapy Assessment Assessment Summary Assessment Vanda was seen for 3 appointments, and has no showed and canceled her remaining appointments and is therefore discharged, she did not have a significant change in function in those 3 visits.
== END 2020-07-15 09:22 | disposition home or self-care (01) ==
LOC: PHYS 10:15
PROVIDERS: PCP Family Medicine; Referring Provider Family Medicine; Visit Provider Family Medicine
DX: S39.012A Strain of muscle, fascia and tendon of lower back, initial encounter (principal); Z91.81 History of falling; M54.41 Lumbago with sciatica, right side
CPT/HCPCS: 97110; 97162

== ENCOUNTER → 2020-07-06 10:02 | Outpatient (CLI) | payer MEDICARE, MEDICAID, SELFPAY ==
[2020-07-06 10:42] LABS: Hemoglobin A1C% w Est Avg Glu 7.6 % (4.0-6.0)
[2020-07-06 10:57] LABS: Alanine Aminotransferase 13 IU/L (<35); Albumin 3.9 g/dL (3.5-5.0); Albumin Globulin Ratio 1.3 (1.0-2.8); Alkaline Phosphatase 111 U/L (38-126); Aspartate Aminotransferase 21 IU/L (14-36); BUN Creatinine Ratio 26.8 (6-22); Bilirubin Total 0.4 mg/dL (0.2-1.3); Blood Urea Nitrogen 19 mg/dL (7-17); Calcium 9.7 mg/dL (8.4-10.2); Carbon Dioxide 31 mmol/L (22-32); Chloride 104 mmol/L (98-107); Cholesterol 143 mg/dL (140-199); Estimated Glomerular Filt Rate > 60.0 mL/min (>60); Globulin 3.1 g/dL (1.7-4.1); Glucose 141 mg/dL (80-110); HDL Cholesterol 40 mg/dL (40-60); HEMOLYSIS < 15 (0-50); LDL Cholesterol Calculated 75 mg/dL (<100); Sodium 140 mmol/L (137-145); Triglycerides 141 mg/dL (35-150)
[2020-07-06 10:58] LABS: Potassium 5.5 mmol/L (3.4-5.1)
[2020-07-06 11:17] LABS: Free T4, Direct Thyroxine 2.37 ng/dL (0.78-2.19)
[2020-07-06 11:32] LABS: Thyroid Stimulating Hormone < 0.015 uIU/mL (0.47-4.68)
== END ==
PROVIDERS: PCP Family Medicine; Referring Provider Family Medicine; Visit Provider Family Medicine
DX: E03.9 Hypothyroidism, unspecified (principal); E11.9 Type 2 diabetes mellitus without complications; E78.5 Hyperlipidemia, unspecified; I10 Essential (primary) hypertension; J44.9 Chronic obstructive pulmonary disease, unspecified
CPT/HCPCS: 36415; 80053; 80061; 83036; 84439; 84443

== ENCOUNTER 2020-08-04 22:28 | Emergency (ER) | payer MEDICARE, MEDICAID, SELFPAY ==
[2020-08-04] VITALS (8 sets, daily range): BP systolic 90–107; BP diastolic 54–62; PULSE 76–84; RESP 18–31; TEMP 37; O2SAT 90–96; BMI 29.2
--- NOTE | 2020-08-04 23:02 | ED_ITS ---
HPI - Syncope General Chief Complaint: Syncope Stated Complaint: Syncope Time Seen by Provider: 08/04/20 23:02 Source: patient and family (son) Mode of arrival: EMS Limitations: no limitations and other History of Present Illness HPI narrative: This is a 70-year-old female who is brought to the emergency depart for a syncopal episode. Patient states this she was celebrating the new year with a friend who is going to have a birthday at midnight. Patient states that she smoked 3 bowls of marijuana. She has smoked marijuana in the past typically on a weekly basis but not this amount and she had quit 3 weeks prior. She states they went to walk outside to smoke a cigarette when she felt like she did not feel well. She states that they sat her down in a chair. She is unsure if she lost consciousness but her friend that was present reported to EMS that she had several seconds loss of consciousness. And then resumed to her normal mental status. She denies any headaches, no vision changes, no chest pain or shortness of breath. She denies any nausea. She did have 1 episode of vomiting. She has had some chronic constipation but is having bowel movements and passing gas. She denies any abdominal pain. She denies any frequency, dysuria or urgency. She has no swelling in her extremities. She does have a history of diabetes and is on Levemir as well as metformin, dyslipidemia and takes Zyprexa as well as sertraline and Plavix. She denies any known cardiac history, MIs or strokes she does have a history of back surgery. She was smoking a pack and half daily until 3 weeks ago. She quit drinking any alcohol many years ago and was using THC about once weekly until 3 weeks ago. She is accompanied by her son. Dr. Gillespie is her pcp. Related Data Previous Rx's Medication Instructions Recorded nut.tx.gluc.intol,lac-free,soy See Rx Instructions .ROUTE 01/14/19 .COMPLEX #5688 ml pen needles See Rx Instructions .ROUTE 09/28/19 .COMPLEX #100 each metformin 1,000 mg tablet 1,000 mg PO BID #180 tab 10/13/19 docusate sodium 250 mg capsule 250 mg PO DAILY PRN #90 cap 10/21/19 ondansetron HCl 4 mg tablet 4 mg PO Q8H PRN #14 tab 02/12/20 ibuprofen 800 mg tablet 800 mg PO TID PRN #50 tab 02/15/20 omeprazole 20 mg tablet,delayed 20 mg PO DAILY #90 tab 04/06/20 release sertraline 100 mg tablet 100 mg PO DAILY #90 tab 04/06/20 lorazepam 1 mg tablet 1 mg PO BEDTIME PRN #30 tab 05/12/20 blood-glucose meter #1 ea 06/22/20 albuterol sulfate 90 mcg/actuation 2 puff INHALATION Q6H PRN #18 g 07/06/20 aerosol inhaler gabapentin 600 mg tablet See Rx Instructions .ROUTE 07/06/20 .COMPLEX #270 tab levothyroxine 175 mcg tablet 175 mcg PO DAILY #90 tab 07/06/20 simvastatin 40 mg tablet 40 mg PO QAM #90 tab 07/11/20 insulin detemir U-100 100 unit/mL See Rx Instructions .ROUTE 07/19/20 (3 mL) subcutaneous pen .COMPLEX #15 ml olanzapine 15 mg tablet 30 mg PO BEDTIME #180 tab 07/25/20 Diabetic Test Strips #100 each 07/27/20 clopidogrel 75 mg tablet See Rx Instructions .ROUTE 07/27/20 .COMPLEX #90 tab Allergies Allergy/AdvReac Type Severity Reaction Status Date / Time Sulfa (Sulfonamide Allergy Severe RASH, Verified 08/04/20 22:41 Antibiotics) SWELLING, [SULFA (SULFONAMIDE ITCHING ANTIBIOTICS)] Penicillins [PENICILLINS] Allergy Intermediate RASH, Verified 08/04/20 22:41 SWELLING, ITCHING tramadol [TRAMADOL] Allergy Intermediate RASH Verified 08/04/20 22:41 hydromorphone [From DILAUDID] AdvReac Severe RASH, Verified 08/04/20 22:41 SWELLING, ITCHING ketorolac [From TORADOL] AdvReac Intermediate RASH Verified 08/04/20 22:41 Review of Systems Review of Systems ROS Unobtainable: All systems reviewed & are unremarkable except as noted in HPI and below Patient History Medical History Anxiety (1970) Cataracts, bilateral (Unknown) Chickenpox (1955) Chronic back pain (2001) COPD (chronic obstructive pulmonary disease) (2012) Depression (1992) Diverticular disease (2004) Fall Foot pain (2016) Hypothyroidism (2001) Lumbar strain Measles (1960) Mumps (1959) Polycythemia Surgical History History of back surgery Hx of hernia repair (10/2016) Family History Brother Age: 62 Diabetes mellitus Father No problems noted. Mother No problems noted. Social History household members: none Smoking Status: Former smoker Tobacco: How many years used: 55 quit status: considering quitting second hand exposure: Yes (my friend Sagar next door smokes.) alcohol intake: former substance use type: marijuana Smoking Status: Former smoker Substance Use Type: marijuana Exam Narrative Exam Narrative: GENERAL: Alert and oriented x three, obese, well-appearing female in mild distress. HEENT: Head normocephalic, atraumatic, EOMI, pupils reactive, face symmetric, moist mucous membranes NECK: Supple, full range of motion CARDIOVASCULAR: Regular rate and rhythm without murmurs, rubs or gallops. No edema bilateral lower extremities. No JVD. RESPIRATORY: Breath sounds equal bilaterally, no wheezes rales or rhonchi. No tachypnea accessory ossicle use. ABDOMEN: Soft, nontender. Normoactive bowel sounds all 4 quadrants. No guarding or rebound, rigidity, no mass : No CVA tenderness EXTREMITIES: Normal range of motion, no clubbing or edema. Neurovascularly intact. NEUROLOGICAL: Cranial nerves II through XII grossly intact. Moving all extre mities SKIN: Warm, dry, no petechiae, no rashes or lesions. Initial Vital Signs Initial Vital Signs: Vital Signs Pulse Rate 79 08/04/20 22:37 Pulse Oximetry 91 08/04/20 22:37 Scores HEART Score Heart Score history: Slightly Suspicious Heart Score EKG: Normal Heart Score Age: > or = 65 years old Heart Score risk factors: 1-2 risk factors Heart Score troponin: < or = to normal limit Heart Score Total: 3 PERC Score Age greater than or equal to 50 years: Yes Heart rate greater than or equal to 100 bpm: No Room Air O2 Sat less than 95%: No Unilateral leg swelling: No Recent trauma or surgery: No Hemoptysis: No Prior PE or DVT: No Hormone Use: No Total PERC Score: 1 Course Orders Ordered: ED Orders 12/31/20 22:36 Complete Blood Count AUTO DIFF Stat Comprehensive Metabolic Panel Stat D Dimer Stat Lipase Stat Troponin & CK Cardiac Panel Stat 08/04/20 23:03 XR chest 1V Stat 08/04/20 23:25 COVID19 Stat 08/05/20 00:13 CT angio chest PE protocol Stat Discontinued Medications Sodium Chloride (Normal Saline 0.9%) 1,000 mls @ 1,000 mls/hr IV BOLUS ONE Stop: 08/05/20 00:01 Last Admin: 08/04/20 23:43 Dose: Not Given Documented by: STEPHANY Vital Signs Vital signs: Vital Signs - 8 hr 08/04/20 22:45 08/04/20 22:55 08/04/20 23:00 Pulse Rate 76 81 80 Pulse Rate [Orthostatic Lying] Pulse Rate [Orthostatic Standing] Respiratory Rate 23 28 H 25 H Blood Pressure 92/54 L 92/58 L 90/57 L Blood Pressure [Orthostatic Lying] Blood Pressure [Orthostatic Standing] Pulse Oximetry 95 95 95 08/04/20 23:02 08/04/20 23:30 08/05/20 00:00 Pulse Rate 84 84 81 Pulse Rate [Orthostatic Lying] Pulse Rate [Orthostatic Standing] Respiratory Rate 28 H 31 H 26 H Blood Pressure 96/62 107/56 L 92/52 L Blood Pressure [Orthostatic Lying] Blood Pressure [Orthostatic Standing] Pulse Oximetry 93 90 L 91 08/05/20 00:30 08/05/20 01:00 08/05/20 01:15 Pulse Rate 72 77 92 H Pulse Rate [Orthostatic Lying] Pulse Rate [Orthostatic Standing] Respiratory Rate 24 21 30 H Blood Pressure 87/53 L 99/55 L 101/58 L Blood Pressure [Orthostatic Lying] Blood Pressure [Orthostatic Standing] Pulse Oximetry 91 91 93 08/05/20 01:19 Pulse Rate Pulse Rate [Orthostatic Lying] 91 H Pulse Rate [Orthostatic Standing] 92 H Respiratory Rate Blood Pressure Blood Pressure [Orthostatic Lying] 99/55 L Blood Pressure [Orthostatic Standing] 101/58 L Pulse Oximetry MDM - Syncope Lab Data Attestation: I reviewed the patient's lab results. Result diagrams: 08/04/20 22:36 08/04/20 22:36 Labs: Lab Results 08/04/20 08/04/2008/04/20 Range/Units 22:36 22:36 22:36 WBC 8.2 (4.5-11.0) X10^3/uL RBC 4.59 (4.0-5.2) X10^6/uL Hgb 13.9 (12.0-16.0) g/dL Hct 42.6 (36-46) % MCV 92.8 (80-100) fL MCH 30.4 (26-34) PG MCHC 32.8 (30-36) % RDW 13.4 (11.6-14.8) % Plt Count 209 (150-400) X10^3/uL Neut % (Auto) 66.3 (50-75) % Lymph % (Auto) 24.1 L (25-40) % [place] % (Auto) 7.0 (3-14) % Eos % (Auto) 1.9 L (2-4) % Baso % (Auto) 0.7 (0-2) % Neut # (Auto) 5400 (9531-1955) /uL Lymph # (Auto) 2000 (2654-8096) /uL [place] # (Auto) 600 (0-900) /uL Eos # (Auto) 200 (0-450) /uL Baso # (Auto) 100 (0-100) /uL D-Dimer (<230) ng/mL Sodium 137 (137-145) mmol/L Potassium 3.7 (3.4-5.1) mmol/L Chloride 106 (98-107) mmol/L Carbon Dioxide 30 (22-32) mmol/L BUN 11 (7-17) mg/dL Creatinine 0.67 (0.52-1.04) mg/dL Estimated GFR > 60.0 (>60) mL/min BUN/Creatinine Ratio 16.4 (6-22) Glucose 143 H (80-110) mg/dL Calcium 8.7 (8.4-10.2) mg/dL Total Bilirubin 0.3 (0.2-1.3) mg/dL AST 21 (14-36) IU/L ALT 12 (<35) IU/L Alkaline Phosphatase 73 (38-126) U/L Total Creatine Kinase 45 (30-135) U/L CK-MB (CK-2) TNP CK-MB (CK-2) Rel Index TNP Troponin I < 0.012 (0.01-0.034) ng/mL Total Protein 6.2 L (6.3-8.2) g/dL Albumin 3.3 L (3.5-5.0) g/dL Globulin 2.9 (1.7-4.1) g/dL Albumin/Globulin Ratio 1.1 (1.0-2.8) Lipase 69 (23-300) U/L SARS-CoV-2 (PCR) (Negative) 08/04/20 08/04/20 Range/Units 22:36 23:25 WBC (4.5-11.0) X10^3/uL RBC (4.0-5.2) X10^6/uL Hgb (12.0-16.0) g/dL Hct (36-46) % MCV (80-100) fL MCH (26-34) PG MCHC (30-36) % RDW (11.6-14.8) % Plt Count (150-400) X10^3/uL Neut % (Auto) (50-75) % Lymph % (Auto) (25-40) % [place] % (Auto) (3-14) % Eos % (Auto) (2-4) % Baso % (Auto) (0-2) % Neut # (Auto) (8306-0243) /uL Lymph # (Auto) (5662-8112) /uL [place] # (Auto) (0-900) /uL Eos # (Auto) (0-450) /uL Baso # (Auto) (0-100) /uL D-Dimer 240 H (<230) ng/mL Sodium (137-145) mmol/L Potassium (3.4-5.1) mmol/L Chloride (98-107) mmol/L Carbon Dioxide (22-32) mmol/L BUN (7-17) mg/dL Creatinine (0.52-1.04) mg/dL Estimated GFR (>60) mL/min BUN/Creatinine Ratio (6-22) Glucose (80-110) mg/dL Calcium (8.4-10.2) mg/dL Total Bilirubin (0.2-1.3) mg/dL AST (14-36) IU/L ALT (<35) IU/L Alkaline Phosphatase (38-126) U/L Total Creatine Kinase (30-135) U/L CK-MB (CK-2) CK-MB (CK-2) Rel Index Troponin I (0.01-0.034) ng/mL Total Protein (6.3-8.2) g/dL Albumin (3.5-5.0) g/dL Globulin (1.7-4.1) g/dL Albumin/Globulin Ratio (1.0-2.8) Lipase (23-300) U/L SARS-CoV-2 (PCR) Negative (Negative) Point of Care Testing Glucose POC 154 Urine Dip Bedside Urine Glucose 100 mg/dl Bedside Urine Bilirubin - Negative Bedside Urine Ketone - Negative Urine Specific [place] 1.010 Bedside Urine Occult Blood - Negative Bedside Urine pH 6.0 Bedside Urine Protein - Negative Bedside Urine Urobilinogen - Negative Bedside Urine Nitrite - Negative Bedside Urine Leukocytes - Negative Esterase Imaging Data Chest x-ray: Attestation: I personally reviewed and interpreted this imaging study as follows: Radiologist's Impression: Mild bibasilar atelectasis. Haziness the left lower lung zone which could be secondary to atelectasis infiltrate or possibly patient's breast tissue. Could be further assessed with follow-up CT. CT scan - chest: Radiologist's Impression: No evidence of PE, atelectasis/fibrotic changes bilaterally. Small come fluid area of atelectasis or consolidation inferior aspect of the left lower lobe. Prominence of the intrahepatic bile ducts and common bile duct. Correlate with LFTs is advised. Right upper quadrant ultrasound could be used for further assessment. Calcific plaque in the coronary arteries and thoracic aorta. Aorta is partially obscured by motion/streak artifact but is normal caliber without evidence of aneurysm. Mildly demented of thyroid gland. No pleural effusion. No adenopathy. Gallbla dder is incompletely visualized with visualized portions unremarkable. Nonspecific right adrenal nodule 1.1 cm with mild thickening of the adrenal glands and multiple healing right-sided rib fractures with no pneumothorax. ECG Data Attestation: I personally reviewed and interpreted this ECG as follows: Prior ECG tracings: available for review Interpretation: Sinus rhythm rate of 81, CT 170, QRS of 92 and QTC of 443. No ST elevation depression appreciated. Patient has prior EKG from 12/14/2009 which appears similar. MDM Narrative Medical decision making narrative: This is a 70-year-old female who had a very short syncopal episode immediately following smoking 3 bowls of marijuana. Patient has had intermittent marijuana use but not typically this amount. She has not had any infectious changes recently. No chest pain or shortness of breath, she did have one episode vomiting. Patient is on Plavix, dyslipidemia medications as well medication for thyroid and diabetes including Levemir. He I suspect patient's changes are secondary to her ingestion of THC does not appear to be any cardiac or clear pulmonary cause. She did have an elevated D-dimer although with the age calculated D-dimer would be more elevated but she did have some mild changes on chest x-ray so CT angiography was ordered as patient has been a little hypotensive. She does not have any significant risk factors for P E and there is none noted on her CT. There is calcific plaque in her coronary arteries, some fibrotic versus atelectatic changes bilaterally and noted prominence of the bile ducts although patient is asymptomatic and her LFT's are not elevated. Patient's blood pressure has been soft. Patient O2 sat was noted to be low while asleep and improved immediatley when awakened. Imaging does shows some fibrotic changes and patient also has significant history of tobacco abouse. Patient BP improving after fluids although not high. Patient continues to be asymptomatic. Discharge Plan Departure Patient Disposition: Home Clinical Impression: Syncope Instructions: DI for Syncope in Adults (Fainting) Activity Restrictions/Additional Instructions: Follow up with your physician in the next several days for recheck. Continue home medications as prescribed. Avoid marijuana or recreational drugs particularly in large amounts. Your imaging today does show some fibrotic changes in your lungs, and her oxygen was low while your asleep you likely have emphysema or other chronic changes and I would discuss these with her physician. It is noted that you have an adrenal nodule on your CT imaging, and the docs in your liver are noted to be prominent although your labs do not show any major abnormalities today. Return to the ER for fevers, lightheadedness, recurrent episodes of passing, new chest pain, shortness of breath, persistent vomiting, swelling of her extremities or other new or concerning symptoms. Prescriptions: No Action pen needles See Rx Instructions .ROUTE .COMPLEX Qty: 100 RF: 2 metformin 1,000 mg tablet 1,000 mg PO BID Qty: 180 RF: 2 docusate sodium 250 mg capsule 250 mg PO DAILY PRN (Reason: constipation) Qty: 90 RF: 3 ibuprofen 800 mg tablet 800 mg PO TID PRN (Reason: pain) Qty: 50 RF: 1 omeprazole 20 mg tablet,delayed release (DR/EC) 20 mg PO DAILY Qty: 90 RF: 2 sertraline 100 mg tablet 100 mg PO DAILY Qty: 90 RF: 2 lorazepam 1 mg tablet 1 mg PO BEDTIME PRN (Reason: anxiety) Qty: 30 RF: 2 (DME) blood-glucose meter Kit See Rx Instructions .ROUTE .MEDSUPPLY Qty: 1 RF: 0 levothyroxine 175 mcg tablet 175 mcg PO DAILY Qty: 90 RF: 1 simvastatin 40 mg tablet 40 mg PO QAM Qty: 90 RF: 2 Levemir FlexTouch U-100 Insuln 100 unit/mL (3 mL) insulin pen See Rx Instructions .ROUTE .COMPLEX Qty: 15 RF: 7 olanzapine 15 mg tablet 30 mg PO BEDTIME Qty: 180 RF: 2 (DME) Diabetic Test Strips Qty: 100 RF: 6 clopidogrel 75 mg tablet See Rx Instructions .ROUTE .COMPLEX Qty: 90 RF: 2 albuterol sulfate [ProAir HFA] 90 mcg/actuation HFA aerosol inhaler 2 puff inhalation Q6H PRN (Reason: shortness of breath or wheezing) Qty: 18 RF: 1 gabapentin 600 mg tablet See Rx Instructions .ROUTE .COMPLEX Qty: 270 RF: 3 Glucerna Shake liquid See Rx Instructions .ROUTE .COMPLEX Qty: 5688 RF: 6 ondansetron HCl [Zofran] 4 mg tablet 4 mg PO Q8H PRN (Reason: nausea and vomiting) Qty: 14 RF: 1 Referrals: Lane Gillespie, [Primary Care Provider] -
--- NOTE | 2020-08-04 23:03 | DI.RAD.S_ITS ---
PROCEDURE: XR CHEST 1V INDICATIONS: syncope TECHNIQUE: One view of the chest was acquired. COMPARISON: [facility], CR, CHEST 2VW, 06/07/2010, 9:20. [facility], CT, CT ANGIO CHEST PE PROTOCOL, 08/05/2020, 0:20. [facility], CR, CHEST 1 VIEW, 05/16/2015, 15:58. FINDINGS: Surgical changes and devices: None. Lungs and pleura: An incomplete inspiratory result is noted, causing a crowded appearance to the lung markings. No focal infiltrates are seen. No pneumothorax or significant pleural effusions are seen. Mediastinum: Mediastinal contours appear normal. Heart size is normal. Bones and chest wall: No suspicious bony lesions. Age-appropriate bony degenerative changes are seen. Overlying soft tissues appear unremarkable. IMPRESSION: Unremarkable portable chest for age, without an imaging explanation found for the patient's presenting history of syncope. Dictated by: New Esteves M.D. on 08/05/2020 at 7:25 Approved by: New Esteves M.D. on 08/05/2020 at 7:26
[2020-08-04 23:11] LABS: Add Manual Diff / Slide Review NO; Basophils Absolute Auto 100 /uL (0-100); Basophils Percent Auto 0.7 % (0-2); Eosinophils Absolute Auto 200 /uL (0-450); Eosinophils Percent Auto 1.9 % (2-4); Hematocrit 42.6 % (36-46); Hemoglobin 13.9 g/dL (12.0-16.0); Lymphocytes Absolute Auto 2000 /uL (1100-4500); Lymphocytes Percent Auto 24.1 % (25-40); Mean Corpuscular HGB Conc 32.8 % (30-36); Mean Corpuscular Hemoglobin 30.4 PG (26-34); Mean Corpuscular Volume 92.8 fL (80-100); Monocytes Absolute Auto 600 /uL (0-900); Neutrophils Absolute Auto 5400 /uL (1500-7000); Neutrophils Percent Auto 66.3 % (50-75); Platelet Count 209 X10^3/uL (150-400); Red Blood Cell Count 4.59 X10^6/uL (4.0-5.2); Red Cell Distribution Width 13.4 % (11.6-14.8); White Blood Cell Count 8.2 X10^3/uL (4.5-11.0)
[2020-08-04 23:17] LABS: Alanine Aminotransferase 12 IU/L (<35); Albumin 3.3 g/dL (3.5-5.0); Albumin Globulin Ratio 1.1 (1.0-2.8); Alkaline Phosphatase 73 U/L (38-126); Aspartate Aminotransferase 21 IU/L (14-36); BUN Creatinine Ratio 16.4 (6-22); Bilirubin Total 0.3 mg/dL (0.2-1.3); Blood Urea Nitrogen 11 mg/dL (7-17); Calcium 8.7 mg/dL (8.4-10.2); Carbon Dioxide 30 mmol/L (22-32); Chloride 106 mmol/L (98-107); Creatine Kinase 45 U/L (30-135); Estimated Glomerular Filt Rate > 60.0 mL/min (>60); Globulin 2.9 g/dL (1.7-4.1); Glucose 143 mg/dL (80-110); HEMOLYSIS 21 (0-50); Potassium 3.7 mmol/L (3.4-5.1); Sodium 137 mmol/L (137-145); Total Protein 6.2 g/dL (6.3-8.2)
[2020-08-04 23:18] LABS: Lipase 69 U/L (23-300)
[2020-08-04 23:29] LABS: Troponin I < 0.012 ng/mL (0.01-0.034)
[2020-08-04 23:52] LABS: D Dimer 240 ng/mL (<230)
[2020-08-05] VITALS: BP 92/52; PULSE 81; RESP 26; O2SAT 91
[2020-08-05 00:02] LABS: COVID19 -Nasal RAPID Negative (Negative)
--- NOTE | 2020-08-05 00:13 | DI.CT.S_ITS ---
PROCEDURE: CT ANGIO CHEST PE PROTOCOL INDICATIONS: pneumonia vs other, syncope TECHNIQUE: After the administration of intravenous contrast, 2 mm thick sections acquired from the pulmonary apices to the posterior costophrenic angles. 3-dimensional maximum intensity projection (MIP) coronal and sagittal reformats were then acquired through the thorax. For radiation dose reduction, the following was used: automated exposure control, adjustment of mA and/or kV according to patient size. COMPARISON: [facility], CT, CT ABDOMEN PELVIS W CON, 12/23/2018, 11:27. [facility], CR, XR CHEST 1V, 08/04/2020, 23:09. [facility], CT, CT ABDOMEN WO CON, 09/30/2018, 11:06. FINDINGS: Image quality: Excellent. Pulmonary arteries: Pulmonary arteries are normal in size, and demonstrate no intraluminal filling defects to suggest central pulmonary embolism. Lungs and pleura: Dependent atelectasis can be seen. No pleural effusions or pneumothorax. Central and peripheral airways are patent. Mediastinum: Heart size is normal. There is a moderate pericardial effusion. No mediastinal or hilar adenopathy. Thoracic aorta is normal in caliber and enhancement. Esophagus is normal in caliber, without hiatal hernia. Bones and chest wall: No suspicious bony lesions. Subacute right anterolateral rib fractures can be seen. Age-appropriate bony degenerative changes are seen. Thyroid gland is small in size. No axillary or supraclavicular adenopathy. Abdomen: Prominence of the 1st portion of the duodenum can be seen. There is a 12 mm nodule within the central portion of the right adrenal gland, which was previously defined as a benign, lipid rich adrenal adenoma. Generalized thickening is seen of left adrenal gland. Prominence of the common bile duct can be seen, measuring 13 mm. The visualized portions of the upper abdominal structures are otherwise unremarkable for imaging technique. IMPRESSION: Negative for pulmonary embolism. There is a moderate pericardial effusion. Prominence of the common bile duct can be seen which is similar to 2019. Incidental note is made of: Prominence of the 1st portion of the duodenum Previously identified right lipid rich adrenal adenoma. Note: No significant discrepancy from the preliminary report. Dictated by: New Esteves M.D. on 08/05/2020 at 7:35 Approved by: New Esteves M.D. on 08/05/2020 at 7:41
[2020-08-05 00:30] VITALS: BP 87/53; PULSE 72; RESP 24; O2SAT 91
[2020-08-05 01:00] VITALS: BP 99/55; PULSE 77; RESP 21; O2SAT 91
[2020-08-05 01:15] VITALS: BP 101/58; PULSE 92; RESP 30; O2SAT 93
[2020-08-05 01:19] VITALS: BP 101/58; BP 99/55; PULSE 91; PULSE 92
== END 2020-08-05 02:00 | disposition home or self-care (01) ==
PROVIDERS: Emergency Provider Emergency Medicine; PCP Family Medicine
DX: R55 Syncope and collapse (principal); F12.90 Cannabis use, unspecified, uncomplicated; R11.10 Vomiting, unspecified; E11.9 Type 2 diabetes mellitus without complications; E78.5 Hyperlipidemia, unspecified; E66.9 Obesity, unspecified; Z68.29 Body mass index [BMI] 29.0-29.9, adult; Z20.828 Contact with and (suspected) exposure to other viral communicable diseases; R07.9 Chest pain, unspecified
CPT/HCPCS: 36415; 71045; 71275; 80053; 81003; 82550; 83690; 84484; 85025; 85379; 87635; 93005; 99284; Q9967

== ENCOUNTER → 2020-08-12 09:03 | Outpatient (CLI) | payer MEDICARE, MEDICAID, SELFPAY ==
[2020-08-12 09:55] LABS: Hemoglobin A1C% w Est Avg Glu 7.5 % (4.0-6.0)
[2020-08-12 09:59] LABS: Alanine Aminotransferase 13 IU/L (<35); Albumin 3.9 g/dL (3.5-5.0); Albumin Globulin Ratio 1.3 (1.0-2.8); Alkaline Phosphatase 101 U/L (38-126); Aspartate Aminotransferase 24 IU/L (14-36); BUN Creatinine Ratio 16.7 (6-22); Bilirubin Total 0.3 mg/dL (0.2-1.3); Blood Urea Nitrogen 10 mg/dL (7-17); Calcium 9.6 mg/dL (8.4-10.2); Carbon Dioxide 34 mmol/L (22-32); Chloride 100 mmol/L (98-107); Estimated Glomerular Filt Rate > 60.0 mL/min (>60); Globulin 3.1 g/dL (1.7-4.1); Glucose 133 mg/dL (80-110); HEMOLYSIS < 15 (0-50); Potassium 5.3 mmol/L (3.4-5.1); Sodium 135 mmol/L (137-145)
== END ==
PROVIDERS: PCP Family Medicine; Referring Provider Family Medicine; Visit Provider Family Medicine
DX: E11.9 Type 2 diabetes mellitus without complications (principal); Z79.4 Long term (current) use of insulin
CPT/HCPCS: 36415; 80053; 83036

== ENCOUNTER 2020-10-10 19:58 | Emergency (ER) | payer MEDICARE, MEDICAID, SELFPAY ==
[2020-10-10 20:04] VITALS: BP 177/78; PULSE 82; RESP 22; TEMP 36.1; O2SAT 94
[2020-10-10 20:48] LABS: Add Manual Diff / Slide Review NO; Basophils Absolute Auto 0 /uL (0-100); Basophils Percent Auto 0.4 % (0-2); Eosinophils Absolute Auto 200 /uL (0-450); Eosinophils Percent Auto 1.9 % (2-4); Hematocrit 43.9 % (36-46); Hemoglobin 14.2 g/dL (12.0-16.0); Lymphocytes Absolute Auto 2300 /uL (1100-4500); Lymphocytes Percent Auto 20.5 % (25-40); Mean Corpuscular HGB Conc 32.4 % (30-36); Mean Corpuscular Hemoglobin 29.8 PG (26-34); Mean Corpuscular Volume 92.1 fL (80-100); Monocytes Absolute Auto 800 /uL (0-900); Monocytes Percent Auto 6.9 % (3-14); Neutrophils Absolute Auto 8100 /uL (1500-7000); Neutrophils Percent Auto 70.3 % (50-75); Platelet Count 306 X10^3/uL (150-400); Red Blood Cell Count 4.76 X10^6/uL (4.0-5.2); White Blood Cell Count 11.5 X10^3/uL (4.5-11.0)
[2020-10-10 20:52] LABS: Prothrombin Time 11.8 SECONDS (10.1-12.7)
[2020-10-10 20:55] LABS: PTT Partial Thromboplastin Tim 34 SECONDS (26.4-36.2)
[2020-10-10 20:58] LABS: Alanine Aminotransferase 13 IU/L (<35); Albumin 3.5 g/dL (3.5-5.0); Albumin Globulin Ratio 1.1 (1.0-2.8); Alkaline Phosphatase 89 U/L (38-126); Aspartate Aminotransferase 21 IU/L (14-36); BUN Creatinine Ratio 22.7 (6-22); Bilirubin Total 0.4 mg/dL (0.2-1.3); Blood Urea Nitrogen 17 mg/dL (7-17); Calcium 9.1 mg/dL (8.4-10.2); Carbon Dioxide 25 mmol/L (22-32); Chloride 104 mmol/L (98-107); Estimated Glomerular Filt Rate > 60.0 mL/min (>60); Globulin 3.1 g/dL (1.7-4.1); Glucose 150 mg/dL (80-110); HEMOLYSIS < 15 (0-50); Lipase 36 U/L (23-300); Potassium 4.1 mmol/L (3.4-5.1); Sodium 135 mmol/L (137-145); Total Protein 6.6 g/dL (6.3-8.2)
--- NOTE | 2020-10-10 21:09 | ED.GENADULT ---
HPI - General Adult General Chief complaint: Abdominal Pain Stated complaint: PAIN TOP OF STOMACH TO LOWER Time Seen by Provider: 10/10/20 21:03 Source: patient Mode of arrival: Ambulatory Limitations: no limitations History of Present Illness HPI narrative: 70-year-old female with a history of diverticulitis. She also has had multiple abdominal surgeries in the past. Here for evaluation of left-sided abdominal discomfort. She states that has been going on for the past 3 weeks. She does have a history of diverticulitis and states this feels like diverticulitis. She has not had any diarrhea. No constipation. No change the abdominal pain with bowel movements. No urinary symptoms. No change in the bowel pain with urination. Has had some nausea but no vomiting. Abdominal pain is worse with touching the area. She contacted her primary doctor who told her to take Tylenol and ibuprofen which she has been doing. No fevers. Related Data Previous Rx's Medication Instructions Recorded nut.tx.gluc.intol,lac-free,soy See Rx Instructions .ROUTE 01/14/19 .COMPLEX #5688 ml pen needles See Rx Instructions .ROUTE 09/28/19 .COMPLEX #100 each docusate sodium 250 mg capsule 250 mg PO DAILY PRN #90 cap 10/21/19 ondansetron HCl 4 mg tablet 4 mg PO Q8H PRN #14 tab 02/12/20 omeprazole 20 mg tablet,delayed 20 mg PO DAILY #90 tab 04/06/20 release sertraline 100 mg tablet 100 mg PO DAILY #90 tab 04/06/20 blood-glucose meter #1 ea 06/22/20 albuterol sulfate 90 mcg/actuation 2 puff INHALATION Q6H PRN #18 g 07/06/20 aerosol inhaler gabapentin 600 mg tablet See Rx Instructions .ROUTE 07/06/20 .COMPLEX #270 tab levothyroxine 175 mcg tablet 175 mcg PO DAILY #90 tab 07/06/20 simvastatin 40 mg tablet 40 mg PO QAM #90 tab 07/11/20 olanzapine 15 mg tablet 30 mg PO BEDTIME #180 tab 07/25/20 Diabetic Test Strips #100 each 07/27/20 clopidogrel 75 mg tablet See Rx Instructions .ROUTE 07/27/20 .COMPLEX #90 tab ibuprofen 800 mg tablet 800 mg PO TID PRN #270 tab 08/10/20 lorazepam 1 mg tablet 1 mg PO BEDTIME PRN #30 tab 08/11/20 insulin detemir U-100 100 unit/mL 50 unit SUBCUT BEDTIME #15 ml 08/15/20 (3 mL) subcutaneous pen metformin 1,000 mg tablet 1,000 mg PO BID #180 tab 08/27/20 ciprofloxacin HCl 500 mg PO BID 10 Days #20 tab 10/10/20 metronidazole [Flagyl] 500 mg PO TID 10 Days #30 tab 10/10/20 Allergies Allergy/AdvReac Type Severity Reaction Status Date / Time Sulfa (Sulfonamide Allergy Severe RASH, Verified 08/15/20 09:50 Antibiotics) SWELLING, [SULFA (SULFONAMIDE ITCHING ANTIBIOTICS)] Penicillins [PENICILLINS] Allergy Intermediate RASH, Verified 08/15/20 09:50 SWELLING, ITCHING tramadol [TRAMADOL] Allergy Intermediate RASH Verified 08/15/20 09:50 hydromorphone [From DILAUDID] AdvReac Severe RASH, Verified 08/15/20 09:50 SWELLING, ITCHING ketorolac [From TORADOL] AdvReac Intermediate RASH Verified 08/15/20 09:50 Review of Systems Constitutional Constitutional: Denies fever(s) and Denies headache(s) ENT Ears, Nose, Mouth, and Throat: Denies headache(s) Cardiovascular Cardiovascular: Denies chest pain and Denies dyspnea Respiratory Respiratory: Denies dyspnea Gastrointestinal Gastrointestinal: Reports abdominal pain, Denies change in bowel habits, Denies nausea and Denies vomiting Genitourinary Genitourinary: Denies dysuria Genitourinary: Denies dysuria Musculoskeletal Musculoskeletal: Denies arthralgias and Denies myalgias Integumentary/Breasts Skin/Breast: Denies lesions and Denies rash Neurologic Neurologic: Denies behavioral changes and Denies headache(s) Psychiatric Psychiatric: Denies behavioral changes Hematologic/Lymphatic On Anticoagulants: No Allergic/Immunologic Allergic/Immunologic: Denies urticaria Patient History Medical History Anxiety (1970) Cataracts, bilateral (Unknown) Chickenpox (195) Chronic back pain (2001) COPD (chronic obstructive pulmonary disease) (2012) Depression (1992) Diverticular disease (2004) Fall Foot pain (2016) Hypothyroidism (2001) Lumbar strain Measles (1959) Mumps (1959) Polycythemia Surgical History History of back surgery Hx of hernia repair (10/2016) Family History Brother Age: 62 Diabetes mellitus Father No problems noted. Mother No problems noted. Social History household members: none Smoking Status: Former smoker Tobacco: How many years used: 55 quit status: considering quitting second hand exposure: Yes (my friend Sagar next door smokes.) alcohol intake: former substance use type: marijuana Smoking Status: Former smoker Substance Use Type: marijuana Exam Initial Vital Signs Initial Vital Signs: Vital Signs Temperature 96.9 F L 10/10/20 20:04 Pulse Rate 82 10/10/20 20:04 Respiratory Rate 22 10/10/20 20:04 Blood Pressure 177/78 H 10/10/20 20:04 Pulse Oximetry 94 10/10/20 20:04 Const General: cooperative, comfortable, well developed and well groomed Limitations: mental status not altered HENMO Head: normal to inspection and normocephalic Resp Effort & Inspection: normal respiratory effort Auscultation: clear to auscultation bilaterally Cardio Rate: regular rate Rhythm: regular rhythm GI Inspection: non-distended Palpation: soft and tender (Left-sided abdomen) Back/Spine/Pelvis Back: No CVA tenderness Skin Lesions: no lesions Rashes: no rashes Neuro General: patient alert and patient awake Cognition: normal cognition Speech: speech normal Extrem General: capillary refill normal Psych Appearance: grossly normal and well kempt Course Orders Ordered: ED Orders 10/10/20 20:38 Complete Blood Count AUTO DIFF Stat Comprehensive Metabolic Panel Stat Lipase Stat Partial Thromboplastin Time Stat Prothrombin Time INR Stat 10/10/20 21:11 CT abdomen pelvis w con Stat Discontinued Medications Hydrocodone Bitart/Acetaminophen (Hydrocodone/Acet 5/325 Tablet) 1 tab PO NOW ONE Stop: 10/10/20 21:12 Last Admin: 10/10/20 21:14 Dose: 1 tab Documented by: MARGE Ciprofloxacin (Ciprofloxacin 500 Mg Tablet) 500 mg PO NOW ONE Stop: 10/10/20 22:31 Last Admin: 10/10/20 22:42 Dose: 500 mg Documented by: MARGE Metronidazole (Metronidazole 500 Mg Tablet) 500 mg PO NOW ONE Stop: 10/10/20 22:31 Last Admin: 10/10/20 22:42 Dose: 500 mg Documented by: MARGE Vital Signs Vital signs: Vital Signs - 8 hr 10/10/20 20:04 Temperature 96.9 F L Pulse Rate 82 Respiratory Rate 22 Blood Pressure 177/78 H Pulse Oximetry 94 Medical Decision Making Lab Data Lab results reviewed: Yes I reviewed the patient's lab results. Result diagrams: 10/10/20 20:38 10/10/20 20:38 Labs: Lab Results 10/10/20 10/10/20 10/10/20 Range/Units 20:38 20:38 20:38 WBC 11.5 H (4.5-11.0) X10^3/uL RBC 4.76 (4.0-5.2) X10^6/uL Hgb 14.2 (12.0-16.0) g/dL Hct 43.9 (36-46) % MCV 92.1 (80-100) fL MCH 29.8 (26-34) PG MCHC 32.4 (30-36) % RDW 14.0 (11.6-14.8) % Plt Count 306 (150-400) X10^3/uL Neut % (Auto) 70.3 (50-75) % Lymph % (Auto) 20.5 L (25-40) % [place] % (Auto) 6.9 (3-14) % Eos % (Auto) 1.9 L (2-4) % Baso % (Auto) 0.4 (0-2) % Neut # (Auto) 8100 H (5429-7797) /uL Lymph # (Auto) 2300 (8423-6961) /uL [place] # (Auto) 800 (0-900) /uL Eos # (Auto) 200 (0-450) /uL Baso # (Auto) 0 (0-100) /uL PT 11.8 (10.1-12.7) SECONDS INR 1.0 (0.9-1.3) APTT 34 (26.4-36.2) SECONDS Sodium 135 L (137-145) mmol/L Potassium 4.1 (3.4-5.1) mmol/L Chloride 104 (98-107) mmol/L Carbon Dioxide 25 (22-32) mmol/L BUN 17 (7-17) mg/dL Creatinine 0.75 (0.52-1.04) mg/dL Estimated GFR > 60.0 (>60) mL/min BUN/Creatinine Ratio 22.7 H (6-22) Glucose 150 H (80-110) mg/dL Calcium 9.1 (8.4-10.2) mg/dL Total Bilirubin 0.4 (0.2-1.3) mg/dL AST 21 (14-36) IU/L ALT 13 (<35) IU/L Alkaline Phosphatase 89 (38-126) U/L Total Protein 6.6 (6.3-8.2) g/dL Albumin 3.5 (3.5-5.0) g/dL Globulin 3.1 (1.7-4.1) g/dL Albumin/Globulin Ratio 1.1 (1.0-2.8) Lipase 36 (23-300) U/L Urine Dip Bedside Urine Glucose Negative Bedside Urine Bilirubin + 1 Bedside Urine Ketone - Negative Urine Specific [place] 1.015 Bedside Urine Occult Blood - Negative Bedside Urine pH 6 Bedside Urine Protein - Negative Bedside Urine Urobilinogen - Negative Bedside Urine Nitrite - Negative Bedside Urine Leukocytes - Negative Esterase Point of care testing: Urine Dip Bedside Urine Glucose Negative Bedside Urine Bilirubin + 1 Bedside Urine Ketone - Negative Urine Specific [place] 1.015 Bedside Urine Occult Blood - Negative Bedside Urine pH 6 Bedside Urine Protein - Negative Bedside Urine Urobilinogen - Negative Bedside Urine Nitrite - Negative Bedside Urine Leukocytes - Negative Esterase Imaging Data CT scan - abdomen/pelvis: Radiologist's Impression: [address] [id number] Scan ReportSigned Patient: Vanda Lay [facility]#: [id number]: [id number]:[id number]/Sex: 70 / FDate of Service: 10/10/20Loc: EDAccession Number: [id number] Procedure: CT abdomen pelvis w con Ordering Provider: Tanvir Delong D.O. PROCEDURE: CT ABDOMEN PELVIS W CON INDICATIONS: Left-sided abdominal pain TECHNIQUE: After the administration of intravenous contrast, 5 mm thick sections acquired from the diaphragm to the symphysis. 5 mm coronal and sagittal reformats were acquired. For radiation dose reduction, the following was used: automated exposure control, adjustment of mA and/or kV according to patient size. COMPARISON: [facility], CT, CT ABDOMEN WO CON, 09/30/2018, 11:06. [facility], CT, CT ABDOMEN PELVIS W CON, 12/23/2018, 11:27. FINDINGS: Image quality: Excellent. ABDOMEN: Lung bases: Bibasilar scarring/atelectasis are again seen. No pleural effusion. Heart size is normal. Small pericardial effusion is noted measures up to 1.2 cm anteriorly. Moderate amount of coronary artery calcifications are seen. Solid organs: Liver is normal in size and enhancement. Gallbladder is contracted and shows no gross abnormality. There is mild chronic appearing intrahepatic biliary ductal dilatation and mild dilatation of common bile duct not significantly changed dating back to 2019. Pancreas enhances normally. Spleen is normal in size and enhancement. Right adrenal nodule is stable in size. The left adrenal thickening is also noted and unchanged. Kidneys demonstrate normal size and enhancement, without hydronephrosis. Peritoneum and bowel: There is no evidence of bowel obstruction. Significant wall thickening and pericolonic fat stranding involving distal descending colon/proximal sigmoid colon is seen in left lower quadrant. Extensive colonic diverticulosis is seen. There is no discrete drainable abscess collection. No free fluid or free air. Postsurgical changes are noted in right lower quadrant abdomen. Nodes and vessels: No retroperitoneal or mesenteric adenopathy by size criteria. Aorta and inferior vena cava are normal in size. Miscellaneous: No ventral hernias. Left posterior lateral abdominal wall defect is again seen containing fat only. PELVIS: Genitourinary: Bladder wall thickness is normal. Miscellaneous: No inguinal hernias or adenopathy. Bones: No suspicious bony lesions. No vertebral body compression fractures. Post left transpedicular fusion changes are noted throughout mid to lower lumbar spine unchanged from prior study. IMPRESSION: 1. Finding is consistent with acute diverticulitis involving distal descending colon/proximal sigmoid colon in left lower quadrant. No discrete abscess collection. No signs of perforation. 2. Postsurgical changes in right lower quadrant abdomen . No bowel obstruction. 3. Stable right adrenal adenoma and thickening of left adrenal gland. 4. Stable mild biliary ductal dilatation. Dictated by: Timothy Alanis M.D. on 10/10/2020 at 21:46 Approved by: Timothy Alanis M.D. on 10/10/2020 at 22:03 [facility] Narrative Medical decision making narrative: CT the abdomen does show diverticulitis without signs of abscess or perforations or obstructions. She was given a 1st dose of antibiotics here in the emergency department by mouth which she was able to hold down without problems. A prescription for the remainder of the course was electronically transmitted to the pharmacy of her choice. Did discuss the use of Tylenol/ibuprofen for any abdominal discomfort. No indication for admission to the hospital today. No indication for surgical consultation. Patient was given return precautions and follow-up instructions. She expressed understanding and agreement. Discharge Plan Departure Patient Disposition: Home Clinical Impression: Diverticulitis Instructions: DI for Diverticulitis Activity Restrictions/Additional Instructions: You were given your 1st dose of antibiotics here in the ER. A prescription for the remainder was electronically transmitted to the pharmacy of your choice. The CT scan today is consistent with diverticulitis. I recommend that you contact your primary provider for a follow-up. Return to the emergency department for any new or worsening symptoms Prescriptions: New metronidazole [Flagyl] 500 mg tablet 500 mg PO TID 10 Days Qty: 30 RF: 0 ciprofloxacin HCl 500 mg tablet 500 mg PO BID 10 Days Qty: 20 RF: 0 No Action pen needles See Rx Instructions .ROUTE .COMPLEX Qty: 100 RF: 2 docusate sodium 250 mg capsule 250 mg PO DAILY PRN (Reason: constipation) Qty: 90 RF: 3 omeprazole 20 mg tablet,delayed release (DR/EC) 20 mg PO DAILY Qty: 90 RF: 2 sertraline 100 mg tablet 100 mg PO DAILY Qty: 90 RF: 2 (DME) blood-glucose meter Kit See Rx Instructions .ROUTE .MEDSUPPLY Qty: 1 RF: 0 levothyroxine 175 mcg tablet 175 mcg PO DAILY Qty: 90 RF: 1 simvastatin 40 mg tablet 40 mg PO QAM Qty: 90 RF: 2 olanzapine 15 mg tablet 30 mg PO BEDTIME Qty: 180 RF: 2 (DME) Diabetic Test Strips Qty: 100 RF: 6 clopidogrel 75 mg tablet See Rx Instructions .ROUTE .COMPLEX Qty: 90 RF: 2 ibuprofen 800 mg tablet 800 mg PO TID PRN (Reason: pain) Qty: 270 RF: 1 lorazepam 1 mg tablet 1 mg PO BEDTIME PRN (Reason: anxiety) Qty: 30 RF: 2 metformin 1,000 mg tablet 1,000 mg PO BID Qty: 180 RF: 3 albuterol sulfate [ProAir HFA] 90 mcg/actuation HFA aerosol inhaler 2 puff inhalation Q6H PRN (Reason: shortness of breath or wheezing) Qty: 18 RF: 1 gabapentin 600 mg tablet See Rx Instructions .ROUTE .COMPLEX Qty: 270 RF: 3 Levemir FlexTouch U-100 Insuln 100 unit/mL (3 mL) insulin pen 50 unit SUBCUT BEDTIME Qty: 15 RF: 7 Glucerna Shake liquid See Rx Instructions .ROUTE .COMPLEX Qty: 5688 RF: 6 ondansetron HCl [Zofran] 4 mg tablet 4 mg PO Q8H PRN (Reason: nausea and vomiting) Qty: 14 RF: 1 Referrals: Lane Gillespie, [Primary Care Provider] -
[2020-10-10] MEDS: HYDROCODONE/ACET 5/325 TABLET 1 TAB PO (21:14)
[2020-10-10] MEDS: metroNIDAZOLE 500 MG TABLET PO (22:42)
[2020-10-10] MEDS: CIPROFLOXACIN 500 MG TABLET PO (22:42)
[2020-10-10 22:48] VITALS: BP 124/58; PULSE 74; RESP 16; O2SAT 98
== END 2020-10-10 23:00 | disposition home or self-care (01) ==
PROVIDERS: Emergency Provider Emergency Medicine; PCP Family Medicine
DX: K57.92 Diverticulitis of intestine, part unspecified, without perforation or abscess without bleeding (principal)
CPT/HCPCS: 36415; 74177; 80053; 81003; 83690; 85025; 85610; 85730; 99284; Q9967

== ENCOUNTER → 2020-10-18 10:26 | Outpatient (CLI) | payer MEDICARE, MEDICAID, SELFPAY ==
[2020-10-18 11:57] LABS: Hemoglobin A1C% w Est Avg Glu 7.1 % (4.0-6.0)
[2020-10-18 12:19] LABS: Alanine Aminotransferase 18 IU/L (<35); Albumin 3.7 g/dL (3.5-5.0); Albumin Globulin Ratio 1.3 (1.0-2.8); Alkaline Phosphatase 78 U/L (38-126); Aspartate Aminotransferase 31 IU/L (14-36); BUN Creatinine Ratio 16.1 (6-22); Bilirubin Total 0.2 mg/dL (0.2-1.3); Blood Urea Nitrogen 10 mg/dL (7-17); Calcium 9.2 mg/dL (8.4-10.2); Carbon Dioxide 26 mmol/L (22-32); Chloride 100 mmol/L (98-107); Estimated Glomerular Filt Rate > 60.0 mL/min (>60); Globulin 2.8 g/dL (1.7-4.1); Glucose 114 mg/dL (80-110); HEMOLYSIS < 15 (0-50); Potassium 5.3 mmol/L (3.4-5.1); Sodium 134 mmol/L (137-145); Total Protein 6.5 g/dL (6.3-8.2)
== END ==
PROVIDERS: PCP Family Medicine; Referring Provider Family Medicine; Visit Provider Family Medicine
DX: E11.9 Type 2 diabetes mellitus without complications (principal); K31.84 Gastroparesis; K57.92 Diverticulitis of intestine, part unspecified, without perforation or abscess without bleeding; Z79.4 Long term (current) use of insulin
CPT/HCPCS: 36415; 80053; 83036

== ENCOUNTER → 2020-12-27 10:58 | Outpatient (CLI) | payer MEDICARE, MEDICAID, SELFPAY | PROVIDERS: PCP Family Medicine; Visit Provider Registered Nurse | DX: M70.21 Olecranon bursitis, right elbow (principal) | CPT/HCPCS: 87070; 87075; 87205 ==

== ENCOUNTER → 2021-01-16 09:33 | Outpatient (CLI) | payer MEDICARE, MEDICAID, SELFPAY ==
[2021-01-16 11:18] LABS: Alanine Aminotransferase 14 IU/L (<35); Albumin Globulin Ratio 1.2 (1.0-2.8); Alkaline Phosphatase 87 U/L (38-126); Aspartate Aminotransferase 26 IU/L (14-36); BUN Creatinine Ratio 21.1 (6-22); Bilirubin Total 0.4 mg/dL (0.2-1.3); Blood Urea Nitrogen 12 mg/dL (7-17); Carbon Dioxide 29 mmol/L (22-32); Chloride 101 mmol/L (98-107); Estimated Glomerular Filt Rate > 60.0 mL/min (>60); Globulin 3.3 g/dL (1.7-4.1); Glucose 118 mg/dL (80-110); HEMOLYSIS < 15 (0-50); Potassium 4.4 mmol/L (3.4-5.1); Sodium 139 mmol/L (137-145); Total Protein 7.3 g/dL (6.3-8.2)
[2021-01-16 11:26] LABS: Hemoglobin A1C% w Est Avg Glu 6.6 % (4.0-6.0)
[2021-01-16 12:01] LABS: Free T4, Direct Thyroxine 2.38 ng/dL (0.78-2.19)
[2021-01-16 12:15] LABS: Thyroid Stimulating Hormone < 0.015 uIU/mL (0.47-4.68)
== END ==
PROVIDERS: PCP Family Medicine; Referring Provider Family Medicine; Visit Provider Family Medicine
DX: E03.9 Hypothyroidism, unspecified (principal); E11.9 Type 2 diabetes mellitus without complications; I10 Essential (primary) hypertension; Z79.4 Long term (current) use of insulin
CPT/HCPCS: 36415; 80053; 83036; 84439; 84443

== ENCOUNTER → 2021-06-12 08:43 | Outpatient (CLI) | payer MEDICARE, MEDICAID, SELFPAY ==
[2021-06-12 09:38] LABS: Hemoglobin A1C% w Est Avg Glu 6.1 % (4.0-6.0)
[2021-06-12 09:43] LABS: Alanine Aminotransferase 14 IU/L (<35); Albumin 4.1 g/dL (3.5-5.0); Albumin Globulin Ratio 1.2 (1.0-2.8); Alkaline Phosphatase 78 U/L (38-126); Aspartate Aminotransferase 29 IU/L (14-36); BUN Creatinine Ratio 20.3 (6-22); Bilirubin Total 0.7 mg/dL (0.2-1.3); Blood Urea Nitrogen 12 mg/dL (7-17); Calcium 9.9 mg/dL (8.4-10.2); Carbon Dioxide 29 mmol/L (22-32); Chloride 103 mmol/L (98-107); Estimated Glomerular Filt Rate > 60.0 mL/min (>60); Globulin 3.3 g/dL (1.7-4.1); Glucose 140 mg/dL (80-110); Sodium 140 mmol/L (137-145); Total Protein 7.4 g/dL (6.3-8.2)
[2021-06-12 09:44] LABS: HEMOLYSIS 97 (0-50); Potassium 5.5 mmol/L (3.4-5.1)
[2021-06-12 10:14] LABS: Thyroid Stimulating Hormone < 0.015 uIU/mL (0.47-4.68)
== END ==
PROVIDERS: PCP Family Medicine; Referring Provider Family Medicine; Visit Provider Family Medicine
DX: E11.9 Type 2 diabetes mellitus without complications (principal); E78.2 Mixed hyperlipidemia; I10 Essential (primary) hypertension; Z79.4 Long term (current) use of insulin
CPT/HCPCS: 36415; 80053; 83036; 84439; 84443

== ENCOUNTER 2021-06-13 08:50 | Emergency (ER) | payer MEDICARE, MEDICAID, SELFPAY ==
[2021-06-13 09:00] VITALS: BP 190/79; PULSE 67; RESP 18; TEMP 36.1; O2SAT 96; BMI 31.3
--- NOTE | 2021-06-13 09:14 | ED.SKABFB ---
HPI - Skin/Abscess/Foreign Bdy General Chief complaint: Skin/Abscess/Foreign Body Stated complaint: LT FOOT SORE/DIABETIC Time Seen by Provider: 06/13/21 09:00 History of Present Illness HPI narrative: The patient has IDDM. She has a sore on sole of her left foot that became obvious about 1 week ago. There is a raised, tender area. There is no erythema. She has no fever. Her glucose is usually in the low 100 range. She has no history of diabetic ulcers on her feet. There is no obvious recent injury. Specifically, discussing possible foreign body, she cannot remember and incident where she may have encountered a potential foreign body. She does not necessary wear shoes at her house. Related Data Previous Rx's Medication Instructions Recorded nut.tx.gluc.intol,lac-free,soy See Rx Instructions .ROUTE 01/14/19 (Glucerna Dieter) .COMPLEX #5688 ml docusate sodium 250 mg capsule 250 mg PO DAILY PRN #90 cap 10/21/19 ondansetron HCl 4 mg tablet 4 mg PO Q8H PRN #14 tab 02/12/20 (Zofran) blood-glucose meter #1 ea 06/22/20 albuterol sulfate 90 mcg/actuation 2 puff INHALATION Q6H PRN #18 g 07/06/20 aerosol inhaler (ProAir HFA) gabapentin 600 mg tablet See Rx Instructions .ROUTE 07/06/20 .COMPLEX #270 tab metformin 1,000 mg tablet 1,000 mg PO BID #180 tab 08/27/20 levothyroxine 175 mcg tablet 175 mcg PO DAILY #90 tab 10/28/20 omeprazole 20 mg tablet,delayed 20 mg PO DAILY #90 tab 12/27/20 release ibuprofen 800 mg tablet 800 mg PO TID PRN #270 tab 02/22/21 sertraline 100 mg tablet See Rx Instructions .ROUTE 03/28/21 .COMPLEX #90 tab simvastatin 40 mg tablet 40 mg PO QAM #90 tab 03/28/21 clopidogrel 75 mg tablet See Rx Instructions .ROUTE 04/24/21 .COMPLEX #90 tab olanzapine 15 mg tablet 30 mg PO BEDTIME #180 tab 04/24/21 Diabetic Test Strips #250 ea 05/09/21 lorazepam 1 mg tablet 1 mg PO BEDTIME PRN #30 tab 05/16/21 BD: Ultra Fine Mini Pen [place] #100 ea 05/26/21 insulin detemir U-100 100 unit/mL 45 unit SUBCUT BEDTIME #15 ml 05/31/21 (3 mL) subcutaneous pen (Levemir FlexTouch U-100 Insulin) cephalexin 500 mg capsule 500 mg PO Q8H 7 Days #21 cap 06/13/21 Allergies Allergy/AdvReac Type Severity Reaction Status Date / Time Sulfa (Sulfonamide Allergy Severe RASH, Verified 06/13/21 09:15 Antibiotics) SWELLING, [SULFA (SULFONAMIDE ITCHING ANTIBIOTICS)] Penicillins [PENICILLINS] Allergy Intermediate RASH, Verified 06/13/21 09:15 SWELLING, ITCHING tramadol [TRAMADOL] Allergy Intermediate RASH Verified 06/13/21 09:15 hydromorphone [From DILAUDID] AdvReac Severe RASH, Verified 06/13/21 09:15 SWELLING, ITCHING ketorolac [From TORADOL] AdvReac Intermediate RASH Verified 06/13/21 09:15 Review of Systems Constitutional Constitutional: Denies chills and Denies fever(s) Musculoskeletal Musculoskeletal: Denies numbness Comments: Left foot sore, see HPI. Integumentary/Breasts Skin/Breast: Reports as per HPI Neurologic Neurologic: Denies numbness Patient History Medical History Anxiety (1970) Cataracts, bilateral (Unknown) Chickenpox (195) Chronic back pain (2001) COPD (chronic obstructive pulmonary disease) (2012) Depression (1992) Diverticular disease (2004) Fall Foot pain (2016) Hypothyroidism (2001) Lumbar strain Measles (1959) Mumps (1959) Olecranon bursitis, right elbow Polycythemia Surgical History History of back surgery Hx of hernia repair (10/2016) Family History Brother Age: 63 Diabetes mellitus Father No problems noted. Mother No problems noted. Social History household members: none Smoking Status: Former smoker Tobacco: How many years used: 55 quit status: considering quitting second hand exposure: Yes (my friend Sagar next door smokes.) alcohol intake: former substance use type: marijuana Smoking Status: Former smoker Substance Use Type: marijuana Exam Initial Vital Signs Initial Vital Signs: Vital Signs Temperature 97.0 F L 06/13/21 09:00 Pulse Rate 67 06/13/21 09:00 Respiratory Rate 18 06/13/21 09:00 Blood Pressure 190/79 H 06/13/21 09:00 Pulse Oximetry 96 06/13/21 09:00 Const General: cooperative, healthy appearing and comfortable Neuro General: patient oriented x3 and no focal motor deficits Sensory Exam: other (Left foot light touch exam is normal.) Extrem Other: 1 cm raised, brown area in the distal, central left plantar foot. There is no induration to the site, but fluctuance. Light touch of the area suggest a foreign body. I was able to express pus from the site. Procedures Foreign Body OTHER Time Out Performed: yes Foreign Body Removal Site: left and foot Description of foreign body: other (A small glass shard) Technique: incision made to facilitate removal (A shave the surface of the associated callus awake, exposing the small shard of glass foreign body which was then easily removed. Pus was expressed from the site. A bacitracin bandage was placed.) Course Course Course Narrative: The left foot wound was cleansed after the foreign body was removed. A wound culture was ordered. The patient was started on Keflex. Orders Ordered: ED Orders 06/13/21 09:06 Wound Culture and Gram Stain Stat Discontinued Medications Bacitracin (Bacitracin Oint 0.9 Gm Pckt) 1 applic TOP NOW ONE Stop: 06/13/21 09:18 Last Admin: 06/13/21 09:26 Dose: 1 applic Documented by: TERI Cephalexin HCl (Cephalexin 250 Mg Capsule) 500 mg PO NOW ONE Stop: 06/13/21 09:17 Last Admin: 06/13/21 09:25 Dose: 500 mg Documented by: TERI Vital Signs Vital signs: Vital Signs - 8 hr 06/13/21 09:00 11 09:40 Temperature 97.0 F L Pulse Rate 67 80 Respiratory Rate 18 18 Blood Pressure 190/79 H 140/73 Pulse Oximetry 96 96 MDM - Skin/Abscess/Foreign Bdy Lab Data Labs: Point of Care Testing Glucose POC 130 Discharge Plan Departure Patient Disposition: Home Clinical Impression: Foreign body in foot, left Qualifiers: Encounter type: initial encounter Qualified Code(s): S90.852A - Superficial foreign body, left foot, initial encounter Instructions: DI for Skin Abscess Activity Restrictions/Additional Instructions: Soak the wound in warm water 2-3 times daily until you are certain the wound is healing well. Keflex 500 mg 3 times daily for 7 days. [facility]. Follow-up with her doctor for recheck within a week. Return here as necessary. Prescriptions: New cephalexin 500 mg capsule 500 mg PO Q8H 7 Days Qty: 21 RF: 0 No Action docusate sodium 250 mg capsule 250 mg PO DAILY PRN (Reason: constipation) Qty: 90 RF: 3 (DME) blood-glucose meter Kit See Rx Instructions .ROUTE .MEDSUPPLY Qty: 1 RF: 0 metformin 1,000 mg tablet 1,000 mg PO BID Qty: 180 RF: 3 levothyroxine 175 mcg tablet 175 mcg PO DAILY Qty: 90 RF: 2 ibuprofen 800 mg tablet 800 mg PO TID PRN (Reason: pain) Qty: 270 RF: 1 simvastatin 40 mg tablet 40 mg PO QAM Qty: 90 RF: 2 sertraline 100 mg tablet See Rx Instructions .ROUTE .COMPLEX Qty: 90 RF: 1 olanzapine 15 mg tablet 30 mg PO BEDTIME Qty: 180 RF: 2 clopidogrel 75 mg tablet See Rx Instructions .ROUTE .COMPLEX Qty: 90 RF: 2 (DME) Diabetic Test Strips Qty: 250 RF: 6 lorazepam 1 mg tablet 1 mg PO BEDTIME PRN (Reason: anxiety) Qty: 30 RF: 2 (DME) BD: Ultra Fine Mini Pen [place] [id number] See Rx Instructions .Route .MEDSUPPLY Qty: 100 RF: 7 albuterol sulfate [ProAir HFA] 90 mcg/actuation HFA aerosol inhaler 2 puff inhalation Q6H PRN (Reason: shortness of breath or wheezing) Qty: 18 RF: 1 gabapentin 600 mg tablet See Rx Instructions .ROUTE .COMPLEX Qty: 270 RF: 3 Glucerna Shake liquid See Rx Instructions .ROUTE .COMPLEX Qty: 5688 RF: 6 ondansetron HCl [Zofran] 4 mg tablet 4 mg PO Q8H PRN (Reason: nausea and vomiting) Qty: 14 RF: 1 omeprazole 20 mg tablet,delayed release (DR/EC) 20 mg PO DAILY Qty: 90 RF: 2 Levemir FlexTouch U-100 Insuln 100 unit/mL (3 mL) insulin pen 45 unit SUBCUT BEDTIME Qty: 15 RF: 5 Referrals: Lane Gillespie, [Primary Care Provider] -
[2021-06-13] MEDS: cephALEXin 250 MG CAPSULE 500 MG PO (09:25)
[2021-06-13] MEDS: BACITRACIN OINT 0.9 GM PCKT 1 APPLIC TOP (09:26)
[2021-06-13 09:40] VITALS: BP 140/73; PULSE 80; RESP 18; O2SAT 96
== END 2021-06-13 09:42 | disposition home or self-care (01) ==
PROVIDERS: Emergency Provider Emergency Medicine; PCP Family Medicine
DX: S90.852A Superficial foreign body, left foot, initial encounter (principal); B96.89 Other specified bacterial agents as the cause of diseases classified elsewhere; W25.XXXA Contact with sharp glass, initial encounter; W45.8XXA Other foreign body or object entering through skin, initial encounter
CPT/HCPCS: 10120; 82962; 87070; 87077; 87186; 87205; 99283

== ENCOUNTER → 2021-09-29 09:06 | Outpatient (CLI) | payer MEDICARE, MEDICAID, SELFPAY ==
[2021-09-29 10:07] LABS: Hemoglobin A1C% w Est Avg Glu 6.8 % (4.0-6.0)
[2021-09-29 10:08] LABS: Alanine Aminotransferase 14 IU/L (<35); Albumin Globulin Ratio 1.2 (1.0-2.8); Alkaline Phosphatase 65 U/L (38-126); Aspartate Aminotransferase 25 IU/L (14-36); BUN Creatinine Ratio 19.7 (6-22); Bilirubin Total 0.4 mg/dL (0.2-1.3); Blood Urea Nitrogen 14 mg/dL (7-17); Calcium 9.5 mg/dL (8.4-10.2); Carbon Dioxide 27 mmol/L (22-32); Chloride 107 mmol/L (98-107); Estimated Glomerular Filt Rate > 60.0 mL/min (>60); Globulin 3.3 g/dL (1.7-4.1); Glucose 118 mg/dL (80-110); HEMOLYSIS < 15 (0-50); Sodium 139 mmol/L (137-145); Total Protein 7.3 g/dL (6.3-8.2)
[2021-09-29 10:28] LABS: Free T4, Direct Thyroxine 3.01 ng/dL (0.78-2.19)
[2021-09-29 10:43] LABS: Thyroid Stimulating Hormone < 0.015 uIU/mL (0.47-4.68)
== END ==
PROVIDERS: PCP Family Medicine; Referring Provider Family Medicine; Visit Provider Family Medicine
DX: E11.9 Type 2 diabetes mellitus without complications (principal); E78.2 Mixed hyperlipidemia; D75.1 Secondary polycythemia; Z79.4 Long term (current) use of insulin; I10 Essential (primary) hypertension; E03.9 Hypothyroidism, unspecified
CPT/HCPCS: 36415; 80053; 83036; 84439; 84443